=== PATIENT | female | born 1990 | race Caucasian/White ===

== ENCOUNTER 2022-10-29 09:30 | Outpatient (OUT) | payer OTHER, SELFPAY ==
--- NOTE | 2022-10-29 | XR_ITS ---
[address] [address] Patient Name: IRVING REEVES MRN: [id number] date: 1990 Sex: F Assigned Patient Location: [facility] Current Patient Location: [facility] Accession/Order Number: [id number] Exam Date: 10/29/2022 10:07 Report Date: 10/29/2022 11:56 At the request of: JOHNATHAN KANG Procedure: XR foot LT min 3V PROCEDURE: XR foot LT min 3V HISTORY: LEFT FOOT PAIN COMPARISON: XR foot left 09/11/2022 FINDINGS: BONES:Stable small osseous protrusion along lateral base of fifth metatarsal. No fracture, dislocation, bone lesion. No significant degenerative joint disease. Flattening of plantar arch. SOFT TISSUES:No visible soft tissue swelling. EFFUSION:None visible. OTHER: Negative. IMPRESSION: 1. No acute bone abnormality. 2. Stable pes planus and stable base of fifth metatarsal. Electronically authenticated by: JOHNATHAN MALDONADO Date: 10/29/2022 11:56
== END 2022-10-29 09:31 | disposition home or self-care (01) ==
LOC: RAD 09:30
PROVIDERS: Visit Provider Podiatrist Foot & Ankle Surgery
DX: M79.672 Pain in left foot (principal); M21.42 Flat foot [pes planus] (acquired), left foot
CPT/HCPCS: 73630

== ENCOUNTER 2023-11-27 12:01 | Outpatient (OUT) | payer BC, SELFPAY ==
[2023-11-27 12:33] LABS: Basophils Percent Auto 0.3 % (0.2-2.0); Eosinophils Absolute Auto 0.2 10^3/uL (0.0-0.7); Eosinophils Percent Auto 1.9 % (0.9-7.0); Hematocrit 41.7 % (36.0-48.0); Hemoglobin 14.1 g/dL (12.0-16.0); Immature Granulocytes Abs Auto 0.03 10^3/uL (0.00-0.03); Immature Granulocytes Pct Auto 0.3 % (0.0-0.5); Mean Corpuscular HGB Conc 33.8 g/dL (29.9-35.2); Mean Corpuscular Hemoglobin 28.3 pg (26.7-34.0); Mean Corpuscular Volume 83.7 fL (81.0-99.0); Mean Platelet Volume 8.5 fL (9.5-13.5); Monocytes Absolute Auto 0.4 10^3/uL (0.3-0.8); Monocytes Percent Auto 4.8 % (1.7-12.0); Neutrophils Absolute Auto 6.4 10^3/uL (1.4-6.5); Neutrophils Percent Auto 70.7 % (43.0-75.0); Platelet Count 323 10^3/uL (150-450); Red Blood Count 4.98 10^6/uL (4.20-5.40); Red Cell Distribution Width 13.2 % (11.0-15.0); White Blood Count 9.1 10^3/uL (4.0-11.0)
[2023-11-27 13:20] LABS: Estimated Average Glucose 97 mg/dL
[2023-11-27 13:21] LABS: Bilirubin Urine NEGATIVE (NEGATIVE); Blood Urine LARGE (NEGATIVE); Clarity Urine SL CLOUDY (CLEAR); Color Urine LT. YELLOW (YELLOW); Glucose Urine UA NEGATIVE (NEGATIVE); Ketones Urine NEGATIVE (NEGATIVE); Leukocyte Esterase Urine LARGE (NEGATIVE); Nitrite Urine NEGATIVE (NEGATIVE); Protein Urine NEGATIVE (NEG/TRACE); Specific Gravity Urine 1.015 (1.005-1.025); Urobilinogen Urine 0.2 EU/dL (0.2-1.0); pH Urine 7.5 (5.0-9.0)
[2023-11-27 13:31] LABS: Bacteria Urine LARGE #/HPF (NONE SEEN)
[2023-11-27 13:32] LABS: Cast Seen? NONE SEEN #/LPF (NONE SEEN); Crystals Seen? None Seen #/HPF (None Seen); Mucus Urine TRACE (NONE SEEN); Squamous Epithelial Cell Urine MANY #/LPF (NONE/RARE); Transitional Epi Cells Urine RARE #/LPF (NONE SEEN)
[2023-11-27 13:58] LABS: Total Protein Urine Random 15.9 mg/dL (<=11.9)
[2023-11-27 14:13] LABS: Alanine Aminotransferase 21 U/L (14-59); Albumin Globulin Ratio 1.1; Albumin Level 3.7 g/dL (3.4-5.0); Alkaline Phosphatase 100 U/L (46-116); Anion Gap 10.8; Aspartate Amino Transferase 16 U/L (15-37); BUN Creatinine Ratio 15.9; Bilirubin Total 0.4 mg/dL (0.2-1.0); Calcium 9.3 mg/dL (8.5-10.1); Carbon Dioxide 28.8 mmol/L (21.0-32.0); Chloride 104 mmol/L (98-107); Estimated GFR (African America >60 (>=60); Estimated GFR (Non-African Ame >60 (>=60); Free T3 2.29 pg/mL (2.18-3.98); Globulin 3.5 g/dL; Glucose 86 mg/dL (74-106); Potassium 3.6 mmol/L (3.5-5.1); Sodium 140 mmol/L (136-145); Thyroid Stimulating Hormone 1.561 uIU/mL (0.358-3.740); Total Protein 7.2 g/dL (6.4-8.2)
== END 2023-11-27 12:02 | disposition home or self-care (01) ==
LOC: LAB 12:03
PROVIDERS: PCP Family Medicine; Visit Provider Family Medicine
DX: R80.9 Proteinuria, unspecified (principal)
CPT/HCPCS: 36415; 80053; 81001; 83036; 84156; 84436; 84443; 84481; 85025

== ENCOUNTER 2024-03-05 07:50 | Outpatient (OUT) | payer BC, SELFPAY ==
--- OUTSIDE RECORDS SUMMARY | 2024-03-05 07:55 | XMS_ITS | CCD ---
Author Organization [facility] CliniSyal Care Team Providers Care Technical Sales Specialist Name Role Phone Maryellen Cintron Unavailable STEVEN Kelley, DR KOTHARI Primary Care Unavailable ZIEBER, DR JOHNATHAN Harding Consulting Unavailable TATI TOVAR Admitting Unavailable TATI TOVAR Attending Unavailable TATI TOVAR Consulting Unavailable KARENY ., DR KOTHARI Primary Care Unavailable TATI TOVAR Attending Unavailable TATI TOVAR Admitting Unavailable SULEMA, DR ABIMBOLA Adame Consulting Unavailable TATI TOVAR Consulting Unavailable JOHNATHAN KANG Admitting Unavailable HOY ., DR KOTHARI Primary Care Unavailable ALLIEBER, DR JOHNATHAN Harding Consulting Unavailable HIGHLANDERJOHNATHAN Attending Unavailable HIGHLANDERJOHNATHAN Consulting Unavailable HOY ., DR KOTHARI Admitting Unavailable HOY ., DR KOTHARI Consulting Unavailable HOY ., DR KOTHARI Attending Unavailable AICHHOLZ, EARRINGS FABRICATOR GALDINO Primary Care Unavailable WEST, DR ABIMBOLA Adame Consulting Unavailable ABIMBOLA GOEL Consulting Unavailable HOY ., DR KOTHARI Admitting Unavailable HOY ., DR KOTHARI Primary Care Unavailable HOY ., DR KOTHARI Consulting Unavailable HOY ., DR KOTHARI Attending Unavailable HOY ., DR KOTHARI Primary Care Unavailable HOY ., DR KOTHARI Attending Unavailable HOY ., DR KOTHARI Admitting Unavailable WEST, DR ABIMBOLA Adame Consulting Unavailable AICHHOLZ, EARRINGS FABRICATOR GALDINO Primary Care Unavailable GUY, TATI Admitting Unavailable GUYTATI Attending Unavailable GUY, TATI Consulting Unavailable AICHHOLZ, EARRINGS FABRICATOR GALDINO Primary Care Unavailable AICHHOLZ, EARRINGS FABRICATOR GALDINO Consulting Unavailable AICHHOLZ, EARRINGS FABRICATOR GALDINO Attending Unavailable AICHHOLZ, EARRINGS FABRICATOR GALDINO Admitting Unavailable AICHHOLZ, EARRINGS FABRICATOR GALDINO Primary Care Unavailable AICHHOLZ, EARRINGS FABRICATOR GALDINO Consulting Unavailable AICHHOLZ, EARRINGS FABRICATOR GALDINO Attending Unavailable AICHHOLZ, EARRINGS FABRICATOR GALDINO Admitting Unavailable HOY ., DR KOTHARI Primary Care Unavailable TATI TOVAR Attending Unavailable GUYTATI Admitting Unavailable HOY ., DR KOTHARI Admitting Unavailable HOY ., DR KOTHARI Primary Care Unavailable HOY ., DR KOTHARI Consulting Unavailable HOY ., DR KOTHARI Attending Unavailable ZIEBER, DR JOHNATHAN Harding Consulting Unavailable PEARL, JOHNATHAN Joiner Admitting Unavailable HOY ., DR KOTHARI Primary Care Unavailable ALLIEBANTONIO, DR JOHNATHAN Harding Consulting Unavailable HIGHLANDER, JOHNATHAN Joiner Attending Unavailable HIGHLANDER, JOHNATHAN Joiner Consulting Unavailable DIANA ., BOUBACAR OLIVAREZ Consulting Unavailable MORGOS, FLORIDALMA Consulting Unavailable SHARP, ZAHIDA Consulting Unavailable HOY ., DR KOTHARI Primary Care Unavailable ANA, DR AMISH Harding Admitting Unavailable ANA, DR AMISH Harding Consulting Unavailable ANA, DR AMISH Harding Attending Unavailable LOLA MILLER Consulting Unavailable HOY ., DR KOTHARI Primary Care Unavailable GUY, TATI Admitting Unavailable GUY, TATI Attending Unavailable PEARL, JOHNATHAN Joiner Admitting Unavailable JOHNATHAN KANG Consulting Unavailable HOY ., DR KOTHARI Primary Care Unavailable PEARL, JOHNATHAN Joiner Attending Unavailable CHUNGDHAVAL ALVAREZ Consulting Unavailable HOY ., DR KOTHARI Primary Care Unavailable MARKER ., DR BARRETT Attending Unavailable MARKER ., DR BARRTET Admitting Unavailable MARKER ., DR BARRETT Consulting Unavailable PEARL, JOHNATHAN Joiner Admitting Unavailable HOY ., DR KOTHARI Primary Care Unavailable JOHNATHAN KANG Attending Unavailable Allergies Allergy Classification Reported Allergen(s) Allergy Type Date of Onset Reaction(s) Facility (1 source) [place] [facility] allergy Unknown [facility] [employer] Other (1 source) Sulfamethoxazole / Trimethoprim Drug Allergy Unknown [facility] [employer] Other (1 source) tree nut, unspecified Drug allergy Unknown [facility] [employer] Other (2 sources) strawberry allergenic extract Drug Allergy [facility] (2 sources) Sulfamethoxazole / Trimethoprim Drug Allergy [address] [facility] (2 sources) tree nut, unspecified Drug allergy (disorder) [facility] Medications Current Medications Medication Drug Class(es) Dates Sig (Normalized) Sig (Original) ARIPiprazole (1 source) Atypical Antipsychotic ARIPiprazole Active cephalexin 500 mg oral capsule (1 source) Cephalosporin Antibacterial Start: 08-21-2021 take 1 capsule by mouth every eight hours Cephalexin 500 MG 1 capsule Orally tid for 10 day(s) Jul, Active Cetirizine (1 source) Histamine-1 Receptor Antagonist ZyrTEC Allergy Active Loratadine (1 source) Claritin Active Omeprazole (1 source) Proton Pump Inhibitor Omeprazole Active Problems Active Problems Problem Classification Problem Date Documented Da te Episodic/Chronic Other non-traumatic joint disorders (1 source) Osteophyte, vertebrae; Translations: [OSTEOPHYTE VERTEBRAE] Onset: 12-09-2021 Chronic Other nutritional; endocrine; and metabolic disorders (1 source) Obesity, unspecified; Translations: [OBESITY UNSPECIFIED] Onset: 01-22-2022 Chronic Other nutritional; endocrine; and metabolic disorders (1 source) Body mass index (BMI) 70 or greater, adult; Translations: [BODY MASS INDEX 70/GT ADULT] Onset: 01-22-2022 Chronic Other nutritional; endocrine; and metabolic disorders (1 source) Morbid (severe) obesity due to excess calories; Translations: [MORBID SEVERE OBES D/T EXCESS MARIIA] Onset: 01-23-2022 Chronic Other nutritional; endocrine; and metabolic disorders (1 source) Body mass index (BMI) 60.0-69.9, adult; Translations: [BODY MASS INDEX BMI 60.0-69.9 ADULT] Onset: 01-23-2022 Chronic Rehabilitation care; fitting of prostheses; and adjustment of devices (4 sources) Encounter for fitting and adjustment of other specified devices; Translations: [ENC FITTING AND ADJUST OTH SPEC DEVICES] Onset: 01-20-2022 Chronic Unclassified (3 sources) CONTACT W/AND (SUSP) EXPOS COVID-19; Translations: [CONTACT W/AND (SUSP) EXPOS COVID-19] Onset: 01-11-2022 Unclassified (1 source) COUGH, UNSPECIFIED; Translations: [COUGH, UNSPECIFIED] Onset: 04-07-2022 Unclassified (1 source) PERSONAL HISTORY OF COVID-19; Translations: [PERSONAL HISTORY OF COVID-19] Onset: 01-23-2022 Viral infection (1 source) COVID-19; Translations: [COVID-19] Onset: 04-07-2022 Past or Other Problems Problem Classification Problem Date Documented Da te Episodic/Chronic Abdominal pain (3 sources) Unspecified abdominal pain; Translations: [UNSPECIFIED ABDOMINAL PAIN] Onset: 12-05-2021 Episodic Acquired foot deformities (1 source) Flat foot [pes planus] (acquired), left foot; Translations: [FLAT FOOT PES PLANUS ACQ LT FOOT] Onset: 02-06-2022 Episodic Fracture of lower limb (10 sources) Displaced fracture of fifth metatarsal bone, left foot, subsequent encounter for fracture with nonunion; Translations: [Displaced fracture of fifth metatarsal bone, unspecified foot, sequela] Onset: 10-02-2021 Episodic Fracture of upper limb (1 source) Displaced fracture of base of other metacarpal bone, sequela; Translations: [[facility]] Onset: 11-13-2021 Episodic Open wounds of extremities (1 source) Puncture wound without foreign body of unspecified finger without damage to nail, initial encounter Onset: 08-21-2021 Resolved: 08-21-2021 Episodic Other aftercare (1 source) Other long term care phlebotomist (current) drug therapy; Translations: [OT HALF-WAY CURRENT DRUG THERAPY] Onset: 01-22-2022 Episodic Other connective tissue disease (4 sources) Pain in left foot; Translations: [PAIN IN LEFT FOOT] Onset: 04-01-2022 Episodic Other connective tissue disease (5 sources) Peroneal tendinitis, left leg; Translations: [PERONEAL TENDINITIS LEFT LEG] Onset: 11-11-2021 Episodic Other connective tissue disease (1 source) Pain in right foot; Translations: [PAIN IN RIGHT FOOT] Onset: 01-23-2022 Episodic Other connective tissue disease (1 source) Ganglion, left ankle and foot; Translations: [GANGLION LEFT ANKLE AND FOOT] Onset: 01-23-2022 Episodic Other connective tissue disease (4 sources) Impingement syndrome of unspecified shoulder; Translations: [IMPINGEMENT SYNDROME UNS SHOULDER] Onset: 09-25-2021 Episodic Other injuries and conditions due to external causes (4 sources) Other injury of muscle, fascia and tendon of lower back, sequela; Translations: [OTH INJ MUSC FASC TEND LW BACK SEQ] Onset: 12-13-2021 Episodic Other upper respiratory disease (1 source) Nasal congestion; Translations: [NASAL CONGESTION] Onset: 04-07-2022 Episodic Spondylosis; intervertebral disc disorders; other back problems (1 source) Dorsalgia, unspecified; Translations: [DORSALGIA UNSPECIFIED] Onset: 12-09-2021 Episodic Unclassified (1 source) CONTACT W/AND (SUSP) EXPOS COVID-19; Translations: [CONTACT W/AND (SUSP) EXPOS COVID-19] Onset: 04-03-2022 Results Test Name Value Interpretation Reference Range Facility Covid-19 PCR (CVDTB)on SARS-CoV-2 (COVID-19) RNA COLBY+probe Ql (Unsp spec) Detected Critically abnormal NOT DETECTED [facility] Comment on above: Result Comment: This test is not yet approved or cleared by the [place] FDA. When there are no FDA-approved or cleared tests available, and other criteria are met, FDA can make tests available under an emergency access mechanism called an Emergency Use Authorization (EUA). The EUA for this test is supported by the Facilities Painter of Health and Human Service's (HHS's) declaration that circumstances exist to justify the emergency use of in vitro diagnostics for the detection and/or diagnosis of the virus that causes COVID-19. This EUA will remain in effect (meaning this test can be used) for the duration of the COVID-19 declaration justifying emergency of IVDs, unless it is terminated or revoked by FDA (after which the test may no longer be used). Performed By: #### C VDTBH #### [facility] [address] [place] [address] Dr. Pat Sarabia INFLUENZA A AND B AGon 04-03 [facility] SEE BELOW Normal [facility] Comment on above: Result Comment: Nega tive for Flu A protein angiten. Infection due to Flu A cannot be ruled out. Flu A angiten in the sample may be below the detection limit of the test. Performed By: #### I NFLUAB #### [facility] [address] [place] [address] Dr. [facility] Normal [facility] Comment on above: Result Comment: Nega tive for Flu B protein antigen. Infection due to Flu B cannot be ruled out. Flu B antigen in the sample may be below the detection limit of the test. Performed By: #### I NFLUAB #### [facility] [address] [address] [address] Pat Sarabia INFLUENZA A AG Negative Normal NEGATIVE SEE COMMENT [facility] Comment on above: Performed By: #### I NFLUAB #### [facility] [address] [address] [address] Pat Sarabia INFLUENZA B AG Negative Normal NEGATIVE SEE COMMENT [facility] Comment on above: Performed By: #### I NFLUAB #### [facility] [address] [address] [address] Pat Sarabia INTERNAL CONTROLS Within Normal Limits Normal Wi thin Normal Limits [facility] Comment on above: Performed By: #### I NFLUAB #### [facility] [address] [place] [address] Dr. Pat Sarabia POINT OF CARE GLUCOSEon 12-26 Glucose [Mass/Vol] 101 mg/dL Normal 74-106 [facility] Comment on above: Performed By: #### A 1C #### [facility] [address] [address] [address] Pat Sarabia Glucose [Mass/Vol] 89 mg/dL Normal 74-106 [facility] Comment on above: Performed By: #### P OCGLUC #### [facility] [address] [place] [address] Dr. Pat Sarabia PREG HCG QUALon 01-13-2022 , QUAL Negative Normal NEGATIVE [facility] Comment on above: Performed By: #### P REG #### [facility] [address] [place] [address] Dr. Pat Sarabia Covid-19 PCR (CVDTBH)on 12-26 SARS-CoV-2 (COVID-19) RNA COLBY+probe Ql (Unsp spec) Not detected Normal NOT DETECTED [facility] Comment on above: Result Comment: This test is not yet approved or cleared by the [place] FDA. When there are no FDA-approved or cleared tests available, and other criteria are met, FDA can make tests available under an emergency access mechanism called an Emergency Use Authorization (EUA). The EUA for this test is supported by the [place] of Health and Human Service's (HHS's) declaration that circumstances exist to justify the emergency use of in vitro diagnostics for the detection and/or diagnosis of the virus that causes COVID-19. This EUA will remain in effect (meaning this test can be used) for the duration of the COVID-19 declaration justifying emergency of IVDs, unless it is terminated or revoked by FDA (after which the test may no longer be used). When diagnostic testing is negative, the possibility of a false negative should be considered in the context of a patient's recent exposures and the presence of clinical signs and symptoms consistent with SARS-CoV-2. Performed By: #### C [facility] #### [facility] [address] [place] [address] Dr. Pat Sarabia XR LSPINE MIN 4 VIEWSon 11-26 XR LSPINE MIN 4 VIEWS EXAMINATION: XR LSPINE MIN 4 VIEWS HISTORY: Muscle and tendon injury ; acute low back pain; no known injury of COMPARISON: No relevant comparison available. FINDINGS: BONES: Mild degenerative endplate changes T11-T12, T12-L1, L2-L3. No fracture spondylolisthesis. DISC SPACES: Mild narrowing L5-S1. PARASPINOUS: Negative. No paraspinous abnormality is seen. OTHER: Negative. IMPRESSION: 1. Multilevel mild degenerative changes. 2. No appreciable acute abnormality. Electronically authenticated by: JOHNATHAN MALDONADO Date: 2021 07:[address] [facility] CT ABD/PELVIS WO CONon 12-06 CT ABD/PELVIS WO CON EXAM: CT abdomen an d Pelvis without contrast dated 12/05/2021 10:01 PM EDT HISTORY: 30 years old Female with left lower quadrant pain. Pain exaggerated with movement. COMPARISON STUDY: None available at time of dictation. TECHNIQUE: Multidetector spiral CT of the abdomen and pelvis was performed from lung bases to pubic symphysis. Imaging was performed without IV contrast. Axial, coronal and sagittal multiplanar reformats were obtained from the axial data set by the technologist. Dose reduction techniques were achieved by using automated exposure control and/or adjustment of mA and/or kV according to patient size and/or use of iterative reconstruction technique. FINDINGS: Evaluation of solid organs is limited due to lack of intravenous contrast use. It should be noted that due to body habitus and technical factors, the soft tissues are not entirely included in the [id number], and there is significant artifact obscuring evaluation on the reconstructed sagittal images. Within this limitation the following are noted. Lung Bases: No acute or significant lung base finding. Normal heart size. No pleural or pericardial effusion. Liver: The liver is normal in size. No focal lesions. Gallbladder and Biliary Tree: The gallbladder is decompressed however very small stones may be present in the lumen of the gallbladder without CT features of cholecystitis. Consider targeted ultrasound if clinically indicated for better characterization. Spleen: Unremarkable Pancreas: The pancreas is grossly normal in appearance. No significant surrounding fluid or edema is appreciated within the limitations of noncontrast CT. Very subtle interstitial edema distally on images 40 series 3 through 42 series 3 and at the proximal pancreas on image 46 through 48 is not excluded, however this may be due to volume averaging. Consider correlation with serum lipase for very mild or early pancreatitis. Adrenal Glands: Unremarkable Kidneys: Kidneys are grossly normal without obstructing calculi or hydronephrosis. 2 mm calculus in the left kidney on image 48 series 3. The distal ureters are somewhat obscured however no ureteric stones are seen. Bladder: Grossly unremarkable for degree of distention. Bowel: The stomach is grossly normal in appearance. Small bowel and colon are normal in caliber and distribution. The appendix is normal in caliber with no findings of acute appendicitis. Scattered diverticulosis with no evidence to suggest diverticulitis. Moderate stool in the colon is noted. Slight areas of fluid-filled enteric bowel are noted in the abdomen, and subcentimeter lymph nodes in the left mesentery are appreciated with subtle adjacent haziness. No pathologic adenopathy is seen. Findings are well seen on images 53 through 102 of series 3 and on the coronal reconstructed images 38 through 51. Mild infectious or inflammatory enteritis is a consideration. Lymphadenopathy: No pathologic mesenteric, retroperitoneal or periportal lymphadenopathy. Vasculature: The visualized abdominal aorta is normal in size and caliber. Evaluation of abdominal and pelvic vessels is limited due to lack of intravenous contrast. Pelvic Organs: No large volume of pelvic free fluid is seen. Probable functional change within the bilateral adnexa however these findings are poorly evaluated on CT. Consider targeted ultrasound for better characterization. Musculoskeletal: No aggressive focal bony lesions, acute fractures or dislocation. At T11-T12, there is significant posterior disc osteophyte formation with calcification of the annulus suggested, left greater than right which narrows the central canal and significantly abuts the lateral recess and neural foramina on the left. No significant right neural foraminal narrowing at this level. Slight posterior disc bulge at L3-L4 and L4-L5 suggested but poorly evaluated due to technique. These findings can be better evaluated with MRI. IMPRESSION: No acute abdominal or pelvic findings. Moderate stool in the colon compatible with constipation and mild infectious or inflammatory enteritis suggested as above. Posterior disc osteophyte complex formation in the lower thoracic spine which narrows the central canal and significantly encroaches upon the left lateral recess and neural foramina is noted as above. Consider correlation with MRI if indicated for better characterization. Nonacute findings as above Electronically authenticated by: LOLA MILLER Date: 2021-12-05 22:[address] [facility] ER URINE PROFILEon 2 Bilirubin Ql (U) Negative Normal NEGATIVE [facility] Comment on above: Performed By: #### E RUR #### [facility] [address] [place] [address] Dr. Pat Sarabia Clarity (U) CLEAR Normal CLEAR [facility] Comment on above: Performed By: #### E RUR #### [facility] [address] [place] [address] Dr. Pat Sarabia Color (U) LT. YELLOW Normal YELLOW [facility] Comment on above: Performed By: #### E RUR #### [facility] [address] [place] [address] Dr. Pat Sarabia ERUAHD A micrscopic examination will be performed if indicated. Normal [facility] Comment on above: Performed By: #### E RUR #### [facility] [address] [place] [address] Dr. Pat Sarabia Glucose Ql (U) Negative Normal NEGATIVE [facility] Comment on above: Performed By: #### E RUR #### [facility] [address] [place] [address] Dr. Pat Sarabia Hemoglobin Ql (U) Negative Normal NEGATIVE [facility] Comment on above: Performed By: #### E RUR #### [facility] [address] [place] [address] Dr. Pat Sarabia Ketones Ql (U) Negative Normal NEGATIVE [facility] Comment on above: Performed By: #### E RUR #### [facility] [address] [place] [address] Dr. Pat Sarabia LEUKOCYTES Negative Normal NEGATIVE [facility] Comment on above: Performed By: #### E RUR #### [facility] [address] [place] [address] Dr. Pat Sarabia Nitrite Ql (U) Negative Normal NEGATIVE [facility] Comment on above: Performed By: #### E RUR #### [facility] [address] [place] [address] Dr. Pat Sarabia pH (U) 6.0 [pH] Normal 5-9 [facility] Comment on above: Performed By: #### E RUR #### [facility] [address] [place] [address] Dr. Pat Sarabia SPEC GRAVITY 1.025 Normal 1.005-<=1.025 [facility] Comment on above: Performed By: #### E RUR #### [facility] [address] [place] [address] Dr. Pat Sarabia UA PROTEIN Negative Normal NEGATIVE/ TRACE [facility] Comment on above: Performed By: #### E RUR #### [facility] [address] [place] [address] Dr. Pat Sarabia UR MICRO IND NOT INDICATED Normal [facility] Comment on above: Performed By: #### E RUR #### [facility] [address] [place] [address] Dr. Pat Sarabia Urobilinogen Qn (U) 0.2 {Hattie'U}/dL Normal 0.2 - 1. 0 [facility] Comment on above: Performed By: #### E RUR #### [facility] [address] [place] [address] Dr. Pat Sarabia MRI FOOT LT WO CONon 022 MRI FOOT LT WO CON Begin Addendum #1 EXAM: MRI FOOT LT WO CON HISTORY: Left foot pain COMPARISON: None. TECHNIQUE: Multiplanar, multi sequential MRI sequences were performed. FINDINGS: This study is degraded secondary to sequence image angulation. There is no gross visualized fracture, dislocation, subluxation or osseous lesion. No joint effusion. Questionable mild soft tissue edema with no loculated collection, mass, cyst, hematoma or calcification. No muscle edema, hematoma, atrophy or fatty infiltration. The visualized tendons exhibit no thickening, tear, edema or tenosynovial collections. IMPRESSION: No visualized abnormality Original Report EXAM: MRI FOOT LT WO CON HISTORY: Stress fracture of left foot COMPARISON: None. TECHNIQUE: FINDINGS: IMPRESSION: Normal [facility] XR FOREIGN BODY EYEon 2021 XR FOREIGN BODY EYE EXAMINATION: XR FOREIGN BODY EYE HISTORY: Foreign body in eye COMPARISON: No relevant comparison available. FINDINGS: ORBITS: Linear hyperdensity projects over the inferior orbits and nose, repeat image demonstrates this to be metal within the patient's mask OTHER: Negative. IMPRESSION: No metallic foreign body in the orbits Electronically authenticated by: ABIMBOLA LEONE Date: 2021-09-25 09:[address] [facility] UA RANDOM W/MICROSCOPICon BACTERIA SMALL Abnormal NONE SEEN [facility] Comment on above: Performed By: #### U AMIC #### [facility] [address] [place] [address] Dr. Pat Sarabia Bilirubin Ql (U) Negative Normal NEGATIVE [facility] Comment on above: Performed By: #### U AMIC #### [facility] [address] [place] [address] Dr. Pat Sarabia CAST NONE SEEN Normal NONE SEEN [facility] Comment on above: Performed By: #### U AMIC #### [facility] [address] [place] [address] Dr. Pat Sarabia Clarity (U) CLEAR Normal CLEAR [facility] Comment on above: Performed By: #### U AMIC #### [facility] [address] [place] [address] Dr. Pat Sarabia Color (U) YELLOW Normal YELLOW [facility] Comment on above: Performed By: #### U AMIC #### [facility] [address] [address] [address] Pat Sarabia Crystals LM Nom (Urine sed) NONE SEEN Normal NONE SEEN [facility] Comment on above: Performed By: #### U AMIC #### [facility] [address] [address] [address] Pat Sarabia Epithelial cells LM Ql (Urine sed) MANY Abnormal NONE SEEN /RARE [facility] Comment on above: Performed By: #### U AMIC #### [facility] [address] [place] [address] Dr. Pat Sarabia Glucose Ql (U) Negative Normal NEGATIVE [facility] Comment on above: Performed By: #### U AMIC #### [facility] [address] [address] [address] Pat Sarabia Hemoglobin Ql (U) Negative Normal NEGATIVE [facility] Comment on above: Performed By: #### U AMIC #### [facility] [address] [address] [address] Pat Sarabia Ketones Ql (U) Negative Normal NEGATIVE [facility] Comment on above: Performed By: #### U AMIC #### [facility] [address] [address] [address] Pat Sarabia LEUKOCYTES Negative Normal NEGATIVE [facility] Comment on above: Performed By: #### U AMIC #### [facility] [address] [address] [address] Pat Sarabia MUCOUS NONE SEEN Normal NONE SEEN [facility] Comment on above: Performed By: #### U AMIC #### [facility] [address] [address] [address] Pat Sarabia Nitrite Ql (U) Negative Normal NEGATIVE The [facility] Comment on above: Performed By: #### U AMIC #### [facility] [address] [place] [address] Dr. Pat Sarabia pH (U) 5.5 [pH] Normal 5-[address] [facility] Comment on above: Performed By: #### U AMIC #### [facility] [address] [place] [address] Dr. Pat Sarabia RBC NONE SEEN Abnormal 0-[address] [facility] Comment on above: Performed By: #### U AMIC #### [facility] [address] [place] [address] Dr. Pat Sarabia SPEC GRAVITY >=1.030 Abnormal 1.005-<=1.025 [facility] Comment on above: Performed By: #### U AMIC #### [facility] [address] [place] [address] Dr. Pat Sarabia UA PROTEIN Negative Normal NEGATIVE/ TRACE [facility] Comment on above: Performed By: #### U AMIC #### [facility] [address] [place] [address] Dr. Pat Sarabia Urobilinogen Qn (U) 0.2 {Hattie'U}/dL Normal 0.2 - 1. [address] [facility] Comment on above: Performed By: #### U AMIC #### [facility] [address] [place] [address] Dr. Pat Sarabia WBC 2-5 Abnormal NONE SEEN [facility] Comment on above: Performed By: #### U AMIC #### [facility] [address] [place] [address] Dr. Pat Sarabia CBC AUTO DIFFon 09-10-2021 BASO # 0.0 103/ul Normal 0.0-0.1 [facility] Comment on above: Performed By: #### C BC #### [facility] [address] [place] [address] Dr. Pat Sarabia Basophils/100 WBC (Bld) 0.4 % Normal 0.2-2.[address] [facility] Comment on above: Performed By: #### C BC #### [facility] [address] [place] [address] Dr. Pat Sarabia EO # 0.2 103/ul Normal 0.0-0.[address] [facility] Comment on above: Performed By: #### C BC #### [facility] [address] [place] [address] Dr. Pat Sarabia Eosinophils/100 WBC (Bld) 2.3 % Normal 0.9-7.0 [facility] Comment on above: Performed By: #### C BC #### [facility] [address] [place] [address] Dr. Pat Sarabia Erythrocyte distribution width (RBC) [Ratio] 13.8 % Normal 11.0-15.0 [facility] Comment on above: Performed By: #### C BC #### [facility] [address] [place] [address] Dr. Pat Sarabia Hematocrit (Bld) [Volume fraction] 41.4 % Normal 36.0-48.0 [facility] Comment on above: Performed By: #### C BC #### [facility] [address] [place] [address] Dr. Pat Sarabia Hemoglobin (Bld) [Mass/Vol] 13.1 g/dL Normal 12.0-16.0 [facility] Comment on above: Performed By: #### C BC #### [facility] [address] [place] [address] Dr. Pat Sarabia IG # 0.02 10e3/ul Normal 0.00-0.03 [facility] Comment on above: Performed By: #### C BC #### [facility] [address] [place] [address] Dr. Pat Sarabia IG % 0.2 % Normal 0.0-0.5 [facility] Comment on above: Performed By: #### C BC #### [facility] [address] [place] [address] Dr. Pat Sarabia LYMPH # 2.4 103/ul Normal 1.2-3.8 [facility] Comment on above: Performed By: #### C BC #### [facility] [address] [place] [address] Dr. Pat Sarabia Lymphocytes/100 WBC (Bld) 29.9 % Normal 20.5-60.0 [facility] Comment on above: Performed By: #### C BC #### [facility] [address] [place] [address] Dr. Pat Sarabia MANUAL DIFF REQ NO Normal [facility] Comment on above: Performed By: #### C BC #### [facility] [address] [address] [address] Pat Sarabia MCH (RBC) [Entitic mass] 27.6 pg Normal 26.7-34.0 [facility] Comment on above: Performed By: #### C BC #### [facility] [address] [place] [address] Dr. Pat Sarabia MCHC (RBC) [Mass/Vol] 31.6 g/dL Normal 29.9-35.[address] [facility] Comment on above: Performed By: #### C BC #### [facility] [address] [place] [address] Dr. Pat Sarabia MCV (RBC) [Entitic vol] 87.3 fL Normal 81.0-99.0 [facility] Comment on above: Performed By: #### C BC #### [facility] [address] [place] [address] Dr. Pat Sarabia MONO # 0.5 103/ul Normal 0.3-0.[address] [facility] Comment on above: Performed By: #### C BC #### [facility] [address] [place] [address] Dr. Pat Sarabia Monocytes/100 WBC (Bld) 5.9 % Normal 1.7-12.0 [facility] Comment on above: Performed By: #### C BC #### [facility] [address] [place] [address] Dr. Pat Sarabia NEUT # 5.0 103/ul Normal 1.4-6.[address] [facility] Comment on above: Performed By: #### C BC #### [facility] [address] [place] [address] Dr. Pat Sarabia Neutrophils/100 WBC (Bld) 61.3 % Normal 43.0-75.[address] [facility] Comment on above: Performed By: #### C BC #### [facility] [address] [place] [address] Dr. Pat Sarabia Platelet mean volume (Bld) [Entitic vol] 9.3 fL Critically low 9.5-13.[address] [facility] Comment on above: Performed By: #### C BC #### [facility] [address] [address] [address] Pat Sarabia PLT 336 103/ul Normal 150-450 [facility] Comment on above: Performed By: #### C BC #### [facility] [address] [address] [address] Pat Sarabia RBC 4.74 106/ul Normal 4.20-5.40 [facility] Comment on above: Performed By: #### C BC #### [facility] [address] [address] [address] Pat Sarabia WBC 8.1 103/ul Normal 4.0-11.0 [facility] Comment on above: Performed By: #### C BC #### [facility] [address] [address] [address] Pat Sarabia FREE T4on 09-10-2021 Free T4 [Mass/Vol] 1.29 ng/dL Normal 0.76-1.46 [facility] Comment on above: Performed By: #### A 1C #### [facility] [address] [place] [address] Dr. Pat Sarabia GLYCOHEMOGLOBIN A1Con 2021 ADA RECOMMENDATION SEE BELOW Normal [facility] Comment on above: Result Comment: ADA RECOMMENDED LIMIT 4.0 - 6.0 ADA THERAPEUTIC TARGET < 7.0 ACTION SUGGESTED > 7.0 Performed By: #### A 1C #### [facility] [address] [address] [address] Pat Sarabia Glucose [Mass/Vol] 108 mg/dL Normal [facility] Comment on above: Performed By: #### A 1C #### [facility] [address] [address] [address] Pat Sarabia HbA1c (Bld) [Mass fraction] 5.4 % Normal 4.5-6.2 [facility] Comment on above: Performed By: #### A 1C #### [facility] [address] [address] [address] Pat Sarabia LIPID PROFILEon 09-10-2021 CHOL-HDL RATIO NORM SEE BELOW Normal [facility] Comment on above: Result Comment: 3.3 - 4.4 LOW RISK 4.4 - 7.1 AVERAGE RISK 7.1 - 11.0 MODERATE RISK >11.0 HIGH RISK Performed By: #### A 1C #### [facility] [address] [address] [address] Pat Sarabia Cholesterol [Mass/Vol] 151 mg/dL Normal <=200 [facility] Comment on above: Performed By: #### A 1C #### [facility] [address] [address] [address] Pat Sarabia Cholesterol in HDL [Mass/Vol] 41 mg/dL Normal 40-60 [facility] Comment on above: Performed By: #### A 1C #### [facility] [address] [address] [address] Pta Sarabia Cholesterol in LDL [Mass/Vol] 88.6 mg/dL Normal [facility] Comment on above: Performed By: #### A 1C #### [facility] [address] [address] [address] Pat Sarabia Cholesterol.total/Ch olesterol in HDL [Mass ratio] 3.7 {ratio} Normal [facility] Comment on above: Performed By: #### A 1C #### [facility] [address] [address] [address] Pat Sarabia HDL NORMAL > or = 60 mg/dl - LOW CARDIOVASCULAR RISK <40 mg/dl - HIGH CARDIOVASCULAR RISK Normal [facility] Comment on above: Performed By: #### A 1C #### [facility] [address] [address] [address] Pat Sarabia LDL CALC NORMAL SEE BELOW Normal [facility] Comment on above: Result Comment: <100 mg/dl OPTIMAL 100 - 129 mg/dl NEAR OR ABOVE OPTIMAL 130 - 159 mg/dl BORDERLINE HIGH 160 - 189 mg/dl HIGH >190 mg/dl VERY HIGH Performed By: #### A 1C #### [facility] [address] [address] [address] Pat Sarabia Triglyceride [Mass/Vol] 107 mg/dL Normal <=150 [facility] Comment on above: Performed By: #### A 1C #### [facility] [address] [address] [address] Pat Sarabia VLDL CALC 21.4 mg/dL Normal [facility] Comment on above: Performed By: #### A 1C #### [facility] [address] [address] [address] Pat Sarabia PROF 14(COMP METB)on 022 Albumin [Mass/Vol] 3.5 g/dL Normal 3.4-5.0 [facility] Comment on above: Performed By: #### A 1C #### [facility] [address] [address] [address] Pat Sarabia Albumin/Globulin [Mass ratio] 1.0 {ratio} Normal [facility] Comment on above: Performed By: #### A 1C #### [facility] [address] [place] [address] Dr. Pat Sarabia ALP [Catalytic activity/Vol] 86 U/L Normal 46-116 [facility] Comment on above: Performed By: #### A 1C #### [facility] [address] [address] [address] Pat Sarabia ALT [Catalytic activity/Vol] 23 U/L Normal 14-59 [facility] Comment on above: Performed By: #### A 1C #### [facility] [address] [place] [address] Dr. Pat Sarabia Anion gap [Moles/Vol] 10.8 mmol/L Normal [facility] Comment on above: Performed By: #### A 1C #### [facility] [address] [address] [address] Pat Sarabia AST [Catalytic activity/Vol] 16 U/L Normal 15-37 [facility] Comment on above: Performed By: #### A 1C #### [facility] [address] [place] [address] Dr. Pat Sarabia Bilirubin [Mass/Vol] 0.4 mg/dL Normal 0.2-1.0 [facility] Comment on above: Performed By: #### A 1C #### [facility] [address] [address] [address] Pat Sarabia Calcium [Mass/Vol] 9.1 mg/dL Normal 8.5-10.1 [facility] Comment on above: Performed By: #### A 1C #### [facility] [address] [address] [address] Pat Sarabia Chloride [Moles/Vol] 102 mmol/L Normal 98-[address] [facility] Comment on above: Performed By: #### A 1C #### [facility] [address] [place] [address] Dr. Pat Sarabia CO2 [Moles/Vol] 29.0 mmol/L Normal 21.0-32.0 [facility] Comment on above: Performed By: #### A 1C #### [facility] [address] [place] [address] Dr. Pat Sarabia Creatinine [Mass/Vol] 0.80 mg/dL Normal 0.55-1.[address] [facility] Comment on above: Performed By: #### A 1C #### [facility] [address] [place] [address] Dr. Pat Sarabia EGFR-AF NEPALESE >60 Normal >=60 [facility] Comment on above: Performed By: #### A 1C #### [facility] [address] [place] [address] Dr. Pat Sarabia EGFR-NON AF NEPALESE >60 Normal >=[address] [facility] Comment on above: Performed By: #### A 1C #### [facility] [address] [place] [address] Dr. Pat Sarabia Globulin (S) [Mass/Vol] 3.6 g/dL Normal [facility] Comment on above: Performed By: #### A 1C #### [facility] [address] [place] [address] Dr. Pat Sarabia Glucose [Mass/Vol] 86 mg/dL Normal 74-106 [facility] Comment on above: Performed By: #### A 1C #### [facility] [address] [place] [address] Dr. Pat Sarabia Potassium [Moles/Vol] 3.8 mmol/L Normal 3.5-5.1 [facility] Comment on above: Performed By: #### A 1C #### [facility] [address] [place] [address] Dr. Pat Sarabia Protein [Mass/Vol] 7.1 g/dL Normal 6.4-8.2 [facility] Comment on above: Performed By: #### A 1C #### [facility] [address] [place] [address] Dr. Pat Sarabia Sodium [Moles/Vol] 138 mmol/L Normal 136-145 [facility] Comment on above: Performed By: #### A 1C #### [facility] [address] [place] [address] Dr. Pat Sarabia Urea nitrogen [Mass/Vol] 11.0 mg/dL Normal 7.0-18.0 [facility] Comment on above: Performed By: #### A 1C #### [facility] [address] [place] [address] Dr. Pat Sarabia Urea nitrogen/Creatinine [Mass ratio] 13.8 mg/mg Normal [facility] Comment on above: Performed By: #### A 1C #### [facility] [address] [place] [address] Dr. Pat Sarabia TSHon 09-10-2021 TSH 1.857 uIU/mL Normal 0.358-3.740 [facility] Comment on above: Performed By: #### A 1C #### [facility] [address] [place] [address] Dr. Pat Sarabia TSH RANGE SEE BELOW Normal [facility] Comment on above: Result Comment: <0.3 4 UIU/ml HYPERTHYROID 0.34-5.60 UIU/ml EUTHYROID >5.60 UIU/ml HYPOTHYROID Performed By: #### A 1C #### [facility] [address] [place] [address] Dr. Pat Sarabia Vital Signs Date Time Vital Sign Value Performing Clinician Facility 08-21-2021 11:50-0400 Body height 167.64 cm Maryellen Cintron Other [facility] Other 08-21-2021 11:50-0400 Body mass index (BMI) [Ratio] 66.98 kg/m2 Maryellen Cintron Other [facility] Other 08-21-2021 11:50-0400 Body temperature 97.7 [degF] Maryellen Cintron Other [facility] Other 08-21-2021 11:50-0400 Body weight 188.24 kg Maryellen Cintron Other [facility] Other 08-21-2021 11:50-0400 Diastolic blood pressure 97 mm[Hg] Maryellen Cintron Other [facility] Other 08-21-2021 11:50-0400 Respiratory rate 20 /min Maryellen Cintron Other [facility] Other 08-21-2021 11:50-0400 SaO2% (BldA) [Mass fraction] 99 % Maryellen Cintron Other [facility] Other 08-21-2021 11:50-0400 Systolic blood pressure 144 mm[Hg] Maryellen Saida Other [facility] Other Encounters Encounter Date Encounter Type Care Provider Facility Start: 09-11-[address] SANIYA Reddy ty:[facility] Start: 06-04-[address] SANIYA Reddy ty:[facility] Start: 04-03-2022 End: 04-03-[address] SANIYA HARRIS . Facility:[facility] Start: 04-01-2022 End: 04-02-[address] SANIYA HARRIS . Facility:[facility] Start: 03-04-2022 End: 03-05-[address] SANIYA HARRIS . Facility:[facility] Start: 02-05-2022 End: 02-06-2022 ambulatory JOHNATHAN Joiner [facility] Facility:[facility] Start: 01-20-2022 End: 01-21-[address] SANIYA HARRIS . Facility:[facility] Start: 01-13-2022 End: 01-13-2022 ambulatory JOHNATHAN Joiner [facility] Facility:[facility] Start: 01-11-2022 Encounter for other preprocedural examination [facility] Marisel [facility] Start: 01-11-2022 Encounter for preprocedural laboratory examination [facility] Marisel [facility] Start: 01-09-2022 End: 01-10-2022 ambulatory [facility] Marisel [facility] Facility:[facility]1 Start: 01-07-2022 End: 01-08-2022 ambulatory [facility] Marisel [facility] Facility:[facility]1 Start: 01-07-2022 End: 01-08-2022 Encounter for preprocedural laboratory examination [facility] Marisel [facility] Facility:[facility]1 Start: 12-13-2021 End: [address] SANIYA HARRIS . Facility:[facility] Start: 12-05-2021 End: 12-06-[address] SANIYA HARRIS . Facility:[facility] Start: 11-11-2021 End: 11-26-[address] SANIYA HARRIS . Facility:[facility] Start: 10-03-2021 End: 10-04-[address] ABIMBOLA LEONE Facility:[facility] Start: 09-25-2021 End: 09-26-[address] SANIYA HARRIS . Facility:[facility] Start: 09-13-2021 Encounter for genera l adult medical examination without abnormal findings MIGUELANGEL TURPIN [facility] Start: 09-11-2021 End: 09-11-2021 ambulatory EARRINGS FABRICATOR GALDINO PAPI Facility:[facility]1 Start: 09-11-2021 End: 09-11-2021 Encounter for general adult medical examination without abnormal findings MIGUELANGEL TURPIN Facility:[facility]1 Start: 09-10-2021 End: 09-11-2021 ambulatory MIGUELANGEL AHMADI PAPI Facility:[facility]1 Start: 08-21-2021 End: 08-21-2021 ambulatory Maryellen Cintron Other [facility] Other Start: 08-21-2021 Office outpatient ne w 20 minutes Maryellen Cintron [facility] Immunizations Immunization Date Immunization Notes Care Provider Piyush abreu 08-21-2021 tetanus toxoid, reduced diphtheria toxoid, and acellular pertussis vaccine, adsorbed Maryellen Cintron Other [facility] Other Payers Date Payer Category Payer Unknown [id number] 2.16.84 [id number] 1990 Unknown [id number] 2.16.84 [id number] 1990 Unknown [id number] 2.16.84 [id number] 1990 Unknown [id number] 2..84 [id number] 1990 Unknown [id number] 2.16.84 [id number] 1990 Unknown [id number] 2.16.84 [id number] 1990 Unknown [id number] 2.16.84 [id number] 1990 Unknown [id number] 2.16.84 [id number] 1990 Unknown [id number] 2.16.84 [id number] 1990 Unknown [id number] .16.84 [id number] 1990 Unknown [id number] 2.16.84 [id number] 1990 Unknown [id number] 2.16.84 0.1.242069.3.579.2.593 1990 Unknown [id number] 2.16.84 [id number] 1990 Unknown [id number] 2.16.84 0.1.812234.3.579.2.593 1990 Unknown [id number] 2.16.84 [id number] 1990 Unknown [id number] 2.16.84 [id number] 1990 Unknown [id number] 2.16.84 [id number] 1959 Private Health Insurance [id number] 1959 Self-pay [id number] Social History Date Type Detail Facility Unknown if ever smoked [facility] Other Sex Assigned At Sex Assigned At Bir th [facility] Other Clinical Note 04-01-2022 Note Date & Type Note Facility 04-01-2022 Note PROCEDURE: XR FOOT L T MIN 3 VIEWS HISTORY: Pain in left foot COMPARISON: XR foot left 03/04/2022 FINDINGS: BONES:Mild degenerative changes the midfoot with flattening of plantar arch. No fracture, dislocation, bone lesion. SOFT TISSUES:Distal dorsal soft tissue swelling. EFFUSION:None visible. OTHER: Negative. IMPRESSION: 1. Stable mild degenerative changes and pes planus. 2. No acute bone abnormality. Electronically authenticated by: JOHNATHAN MALDONADO Date: 2022-04-01 14:[address] [facility] Clinical Note 03-05-2022 Note Date & Type Note Facility 03-05-2022 Note PROCEDURE: XR FOOT L T MIN 3 VIEWS COMPARISON: 02/05/2022 01/13/2022 HISTORY: Pain in left foot FINDINGS: BONES:No acute fracture or dislocation. Stable degenerative changes most significant at the talonavicular joint. SOFT TISSUES:Negative. No visible soft tissue swelling. EFFUSION:None visible. OTHER: Negative. IMPRESSION: Mild degenerative changes Electronically authenticated by: ABIMBOLA LEONE Date: 2022-03-05 08:[address] [facility] Clinical Note 02-05-2022 Note Date & Type Note Facility 02-05-2022 Note PROCEDURE: XR FOOT L T MIN 3 VIEWS HISTORY: Pain COMPARISON: XR foot left 01/13/2022 FINDINGS: BONES:No fracture, dislocation, or significant degenerative joint disease. Flattening of the plantar arch. SOFT TISSUES:Mild dorsal soft tissue swelling. Cast material has been removed. EFFUSION:None visible. OTHER: Negative. IMPRESSION: 1. No acute bone abnormality or significant degenerative joint disease. 2. Pes planus. 3. Stable surgical changes. Electronically authenticated by: JOHNATHAN MALDONADO Date: 2022-02-05 17:[address] [facility] Clinical Note 01-13-2022 Note Date & Type Note Facility 01-13-2022 Note PROCEDURE: XR FOOT L T MIN 3 VIEWS HISTORY: Pain COMPARISON: XR foot left 10/03/2021, 01/13/2022 intraoperative images FINDINGS: BONES:A prominent, separate ossification previously seen at the base of the fifth metatarsal has been removed. SOFT TISSUES:Images obtained to cast material which limits evaluation. Mild soft tissue swelling. EFFUSION:None visible. OTHER: Negative. IMPRESSION: 1. Stable base of fifth metatarsal changes compared to intraoperative images. Electronically authenticated by: JOHNATHAN MALDONADO Date: 2022-01-13 16:[address] [facility] Clinical Note 01-13-2022 Note Date & Type Note Facility 01-13-2022 Note PROCEDURE: XR FOOT L T 2V HISTORY: Pain COMPARISON: XR foot left 10/03/2021 FINDINGS: BONES:Intraoperative spot fluoroscopic images demonstrate removal of separate ossification at base of fifth metatarsal. SOFT TISSUES:Expected intraoperative findings. EFFUSION:None visible. OTHER: Negative. IMPRESSION: 1. Separate ossification removal adjacent base of fifth metatarsal. Electronically authenticated by: JOHNATHAN MALDONADO Date: 2022-01-13 16:[address] [facility] Clinical Note 10-03-2021 Note Date & Type Note Facility 10-03-2021 Note PROCEDURE: XR FOOT L T MIN 3 VIEWS COMPARISON: None. HISTORY: Pain in left foot FINDINGS: BONES:No acute fracture or dislocation. There is contour deformity of the navicular suggesting remote injury. Bone fragment identified along the lateral midfoot likely arising from the cuboid, remote injury. SOFT TISSUES:Negative. No visible soft tissue swelling. EFFUSION:None visible. OTHER: Negative. IMPRESSION: Degenerative changes, no acute fracture Electronically authenticated by: ABIMBOLA LEONE Date: 2021-10-03 10:07 [facility] Evaluation note 08-21-2021 Note Date & Type Note Facility 08-21-2021 Evaluation note Encounter Date Diagnosis Assessment Notes Jul, Puncture wound of finger, initial encounter (ICD-10 - S61.239A) Keep the wound clean and dry. Apply antibiotic ointment and a Band-Aid to the wound daily. Take cephalexin as prescribed until gone. Follow-up with your family physician for any worsening symptoms or concerns. Jul, Other Puncture wound home care material was printed [facility] Other History general Narrative - Reported Note Date & Type Note Facility History general Narrative - Reported Type Medical History allergies Surgical History tonsillectomy and adenoidectomy Surgical History pet placement Hospitalization History see above [facility] Other Summary Purpose Family History No Family History Records Found Advance Directives No Advanced Directives Records Found Additional Source Comments REASON FOR VISIT (unrecogniz ed section and content) PUNCTURE WOUND LEFT INDEX FI NGER LAST NIGHT, NEEDS TETANUS UPDATED INFORMATION SOURCE (unrecogn ized section and content) DATE CREATED AUTHOR 09/08/2022 [facility] FOR RECORDS PERTAINING TO PATIENTS WHO ARE OR HAVE BEEN ENROLLED IN A CHEMICAL DEPENDENCY/SUBSTANCEABUSE PROGRAM, SOME INFORMATION MAY BE OMITTED. This clinical summary was aggregated from multiple sources. Caution should be exercised in using it in the provision of clinical care. This summary normalizes information from multiple sources, and as a consequence, information in this document may materially change the coding, format and clinical context of patient data. In addition, data may be omitted in some cases. CLINICAL DECISIONS SHOULD BE BASED ON THE PRIMARY CLINICAL RECORDS. [employer] [facility]. provides no warranty or guarantee of the accuracy or completeness of information in this document.
[2024-03-05 08:19] LABS: Estimated Average Glucose 100 mg/dL; Glycohemoglobin A1C 5.1 % (4.5-6.2)
[2024-03-05 08:40] LABS: Basophils Percent Auto 0.3 % (0.2-2.0); Eosinophils Absolute Auto 0.4 10^3/uL (0.0-0.7); Eosinophils Percent Auto 4.5 % (0.9-7.0); Hematocrit 40.6 % (36.0-48.0); Hemoglobin 13.2 g/dL (12.0-16.0); Immature Granulocytes Abs Auto 0.02 10^3/uL (0.00-0.03); Immature Granulocytes Pct Auto 0.3 % (0.0-0.5); Lymphocytes Absolute Auto 2.6 10^3/uL (1.2-3.8); Lymphocytes Percent Auto 33.5 % (20.5-60.0); Mean Corpuscular HGB Conc 32.5 g/dL (29.9-35.2); Mean Corpuscular Hemoglobin 28.3 pg (26.7-34.0); Mean Corpuscular Volume 86.9 fL (81.0-99.0); Mean Platelet Volume 8.4 fL (9.5-13.5); Monocytes Absolute Auto 0.4 10^3/uL (0.3-0.8); Monocytes Percent Auto 5.6 % (1.7-12.0); Neutrophils Absolute Auto 4.3 10^3/uL (1.4-6.5); Neutrophils Percent Auto 55.8 % (43.0-75.0); Platelet Count 305 10^3/uL (150-450); Red Blood Count 4.67 10^6/uL (4.20-5.40); Red Cell Distribution Width 13.3 % (11.0-15.0); White Blood Count 7.7 10^3/uL (4.0-11.0)
[2024-03-05 09:19] LABS: Alanine Aminotransferase 20 U/L (14-59); Albumin Globulin Ratio 0.9; Albumin Level 2.9 g/dL (3.4-5.0); Alkaline Phosphatase 101 U/L (46-116); Anion Gap 11.6; Aspartate Amino Transferase <5 U/L (15-37); BUN Creatinine Ratio 22.4; Bilirubin Total 0.3 mg/dL (0.2-1.0); Calcium 8.4 mg/dL (8.5-10.1); Carbon Dioxide 29.3 mmol/L (21.0-32.0); Chloride 107 mmol/L (98-107); Chol HDL Ratio 3.5; Cholesterol 171 mg/dL (<=200); Estimated GFR (African America >60 (>=60 mL/min/1.73m^2); Estimated GFR (Non-African Ame >60 (>=60 mL/min/1.73m^2); Free T3 2.44 pg/mL (2.18-3.98); Globulin 3.4 g/dL; Glucose 92 mg/dL (74-106); HDL Cholesterol 49 mg/dL (40-60); LDL Cholesterol Calculated 97.4 mg/dL; Potassium 3.9 mmol/L (3.5-5.1); Sodium 144 mmol/L (136-145); Thyroid Stimulating Hormone 1.451 uIU/mL (0.358-3.740); Total Protein 6.3 g/dL (6.4-8.2); Triglycerides 123 mg/dL (<=150); VLDL CHOLESTEROL 24.6 mg/dL
== END 2024-03-05 07:51 | disposition home or self-care (01) ==
PROVIDERS: PCP Family Medicine; Visit Provider Family Medicine
DX: Z00.00 Encounter for general adult medical examination without abnormal findings (principal)
CPT/HCPCS: 36415; 80053; 80061; 83036; 83525; 83540; 84436; 84443; 84481; 85025

== ENCOUNTER 2024-12-08 11:10 | Outpatient (OUT) | payer OTHER, SELFPAY ==
--- OUTSIDE RECORDS SUMMARY | 2024-08-22 12:45 | XMS_ITS ---
Author Organization [facility] [place] Address [address] [place] [address] Care Team Providers Care Laundry Technician Name Role Phone Emil Gant Primary Care Provider Allergies Allergen (clinical drug ingredient) Drug/Non Drug Allergy documented on EMR Reaction Allergy Type Onset Date Status nuts (uncoded) anaphylaxis Allergy Act amish strawberry allergenic extract strawberry (uncoded) anaphylaxis Allergy Active sulfamethoxazole / trimethoprim Bactrim cotton mouth- family severe reaction Drug Allergy Active REASON FOR VISIT Presents to office with daughter. Woke yesterday am with right ear pain. Medications Medication SIG (Take, Route, Frequency, Duration) Notes Start Date End Date Status Ciprofloxacin HCl 500 MG 1 tablet Orally every 12 hrs for 10 days 08/22/2024 Active Ryzlgokm-Efctymkul-ZA 3.5-35644-5 4 drops into affected ear Otic Three times a day 08/22/2024 Active Claritin 10 MG 1 tablet Orally Once a day Active Social History Tobacco Use: Social History Observation Description Date Details (start date - stop date) Never Smoker NA - NA Tobacco Use/Smoking Question Answer Notes Patient is a nonsmoker AUDIT-C (Standard) Question Answer Notes Did you have a drink containing alcohol in the p ast year? No Points 0 Interpretation Negative Problems Problem Type SNOMED Code ICD Code Onset Dates Problem Status W/U Status Risk Notes Problem Otitis externa (8281557) Otitis externa (H60.90) Active confirmed Problem Otitis externa of right ear (441430251499 9101) External otitis of right ear (H60.91) Active confirmed Vital Signs Blood pressure systolic 112 mm Hg 08/23/19 25 Blood pressure diastolic 84 mm Hg 025 Height 66 in 08/22/2024 Weight 428.4 lbs 08/22/2024 BMI 69.14 kg/m2 08/22/2024 Encounters Encounter Location Date Provider Diagnosis [facility] [address] [place] [address] 08/22/2024 Emil Hoy Otitis externa H60.9 0 and External otitis of right ear H60.91 Assessments Encounter Date Diagnosis (ICD Code) Assessment Notes Treatment Notes Treatment Clinical Notes Section Notes 08/22/2024 Otitis externa (ICD-10 - H60.90) 08/22/2024 External otitis of right ear (ICD-10 - H60.91) Plan Of Treatment Medication Medication Name Sig Start Date Stop Date Notes Ciprofloxacin HCl 500 MG 1 tablet Orally every 12 hrs for 10 days 08/22/2024 Dwdhanhf-Pqaotudio-GU 3.5-50454-4 4 drops into affected ear Otic Three times a day 08/22/2024 Progress Notes * Doroteo IGLESIASa NDOB:[birth year] (33 yo F)Acc No.[id number]:08/22/2024 Progress Note Patient: Marlena MAZARIEGOS Provider: Marisel Gant ([facility])MD :1990 A ge:33 Y S ex:Female Date:08/22/2024 Address:[address] [place], [place] [id number] Check In:04:38 PM ESTCheck O ut:05:06 PM EST Subjective: * Chief Complaints: * P resents to office with daughter. Woke yesterday am with right ear pain. * HPI: G eneral: R ear pain - no other cold symptosm. 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 Modified On:10/29/2022 Status:confirmed J02.0 Strep pharyngitis Modified On:04/06/2023 Status:confirmed J01.90 Acute sinusitis Modified On:06/15/2023 Status:confirmed G47.00 Insomnia Modified On:06/24/2023 Status:confirmed F41.1 Generalized anxiety disorder Modified On:06/24/2023 Status:confirmed M79.672 Foot pain, left Modified On:07/31/2023 Status:confirmed R80.9 Proteinuria Modified On:11/26/2023 Status:confirmed Z00.00 Well adult Modified On:03/04/2024 Status:confirmed H60.90 Otitis externa Modified On:08/22/2024 Status:confirmed H60.91 External otitis of r ight ear Modified On:08/23/2024 Status:confirmed * Medical History: * Surgical History: l eft foot surgery; 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 M other: alive. B karinaer(s): alive. S ister(s): alive. D anika(s): alive. P aternal Grandmother: stroke, diagnosed with Unspecified essential hypertension, Diabetes mellitus without mention of complication, type II or unspecified type, not stated as uncontrolled. M aternal Grandfather: , diagnosed with Unspecified essential hypertension, Unspecified heart disease. M aternal Grandmother: , diagnosed with Other malignant neoplasm of unspecified site. P aternal Grandfather: diagnosed with Unspecified essential hypertension. 1 brother(s) , 1 sister(s) . 1 daughter(s) . . * Social History: T obacco Use: T obacco Use/Smoking P atient is a n onsmoker D rug/Alcohol: A SOFI-C (Standard) D id you have a drink containing alcohol in the past year? N o P oints 0 I nterpretation N egative * Medications: T akingClaritin(Loratadine) 10 MG Tablet 1 tablet Orally Once a day Taking Claritin(Loratadine) 10 MG Tablet 1 tablet Orally Once a day DiscontinuedAmoxicillin-Pot Clavulanate 875-125 MG Tablet 1 tablet Orally every 12 hrs ARIPiprazole 20 MG Tablet 1 tablet Orally Once a day busPIRone HCl 15 MG Tablet 1 tablet Orally Twice a day Meloxicam 15 MG Tablet 1 tablet Orally Once a day Omeprazole 40 MG Capsule Delayed Release 1 capsule 30 minutes before morning meal Orally Once a day predniSONE 20 MG Tablet 3 tablets Orally Once a day tiZANidine HCl 4 MG Tablet 2 tablets Orally at bedtime Zovirax(Acyclovir) 5 % Cream 1 application Externally Five times a day Medication List reviewed and reconciled with the patientDiscontinued Amoxicillin-Pot Clavulanate 875-125 MG Tablet 1 tablet Orally every 12 hrs Discontinued ARIPiprazole 20 MG Tablet 1 tablet Orally Once a day Discontinued busPIRone HCl 15 MG Tablet 1 tablet Orally Twice a day Discontinued Meloxicam 15 MG Tablet 1 tablet Orally Once a day Discontinued Omeprazole 40 MG Capsule Delayed Release 1 capsule 30 minutes before morning meal Orally Once a day Discontinued predniSONE 20 MG Tablet 3 tablets Orally Once a day Discontinued tiZANidine HCl 4 MG Tablet 2 tablets Orally at bedtime Discontinued Zovirax(Acyclovir) 5 % Cream 1 application Externally Five times a day Medication List reviewed and reconciled with the patient * Allergies: B actrim: cotton mouth- family severe reaction - Allergystrawberry: anaphylaxis - Allergynuts: anaphylaxis - Allergyno[Allergies Verified] Objective: * Vitals: W t:428.4lbs, Ht: 66 in, BP:112/84mm Hg, BMI:69.14Index, Ht-cm: 167.64 cm, Wt-k.32 kg. * Examination: A bdomen Exam:: R OE. Assessment: * Assessment: 1. O titis externa - H60.90 (Primary) 2 . E xternal otitis of right ear - H60.91 Plan: * Treatment: * Procedure Codes: * Preventive Medicine: Screenings/Counseling: B MN ACTION PLAN Above Normal BMI Follow-up D ietary management education, guidance, and counseling See treatment section of progress note for complete details of management plan. * * Sign off status: Completed Visit Status: C HK (Check Out) true * Provider: Marisel Gant ([facility])MD Date: 0 08/22/2024 Generated for Letitiai ng/Fadarielg/eTransmitting on: 0 12/08/2024 11:16 AM EDT History and Physical Notes * HPI (History of Present Illness) Category Sub-Category Detail Notes Category Not es General R ear pain - no other cold symptosm Examination Category Sub-Category Detail Notes Category Not es Abdomen Exam: R OE
--- OUTSIDE RECORDS SUMMARY | 2024-12-05 10:10 | XMS_ITS ---
Author Organization [facility] [place] Address [address] [place] [address] Care Team Providers Care Rf Design Engineer Name Role Phone Emil Gant Primary Care Provider [phone] REASON FOR VISIT request Medications Medication SIG (Take, Route, Fr equency, Duration) Notes Start Date End Date Status Meloxicam 15 MG 1 tablet Orally Once a day for 30 days 12/05/2024 Active Encounters Encounter Location Date Provider Diagnosis [facility] [address] [place] [address] 12/05/2024 Emil Gant Plan Of Treatment Medication Medication Name Sig Start Date Stop Date Notes Meloxicam 15 MG 1 tablet Orally Once a day for 30 days 02/2025 Progress Notes * HARRIS Marlena NDOB:[birth year] (33 yo F)Acc No.[id number]:12/05/2024 Patient: Marlena MAZARIEGOS Julien :1990 A ge:33 Y S ex:Female Address:[address] [place] [address], [address] * Refills Start Meloxicam Tablet, 15 MG, Orally, 30, 1 tablet, Once a day, 30 days, Refills=11 * true * Date: Generated for Printi ng/Faxing/eTransmitting on: 0 12/08/2024 11:15 AM EDT
--- OUTSIDE RECORDS SUMMARY | 2024-12-08 11:15 | XMS_ITS | Clinical Summary ---
Author Organization [facility] Address [address] [place] [address] Care Team Providers Care Window Cutter Name Role Phone Unavailable Primary Care Provider Unavailabl e Social History Tobacco Use Types Packs/Day Years Used Date Smoking Tobacco: Never Assessed Comments Unknown Sex and Gender Information Value Date Recorded Sex Assigned at Female 01/25/2024 10:22 AM EDT Legal Sex Female 7:23 PM EDT Gender Identity Female 01/25/2024 10:22 AM EDT Sexual Orientation Lesbian 01/25/2024 10 :22 AM EDT Last Filed Vital Signs Vital Sign Reading Time Taken Comments Blood Pressure 143/94 11/25/2021 12:00 PM EDT Pulse - - Temperature - - Respiratory Rate - - Oxygen Saturation - - Inhaled Oxygen Concentration - - Weight 195 kg (429 lb) 12/09/2021 12:00 PM EDT Height 165.1 cm (5' 5 ) 12/09/2021 12:00 PM EDT Body Mass Index 71.39 12/09/2021 12:00 PM EDT Plan of Treatment Not on file
--- OUTSIDE RECORDS SUMMARY | 2024-12-08 11:16 | XMS_ITS | Patient Health Record ---
Author Organization [facility] [place] Address [address] [place] [address] Care Team Providers Care Gas Mask Assembler Name Role Phone Emil Gant Primary Care Provider Allergies Allergen (clinical drug ingredient) Drug/Non Drug Allergy documented on EMR Reaction Allergy Type Onset Date Status nuts (uncoded) anaphylaxis Allergy Act amish strawberry allergenic extract strawberry (uncoded) anaphylaxis Allergy Active sulfamethoxazole / trimethoprim Bactrim cotton mouth- family severe reaction Drug Allergy Active Results Component Value Reference Range Notes GLYCOHEMOGLOBIN A1C Reviewed date:03/05/2024 04:15:51 PM Interpretation: Performing Lab: Notes/Report: [facility] , Glycohemoglobin A1C 5.1 4.5-6.2 % ADA RECOMMENDED LIMIT 4.0 - 6.0 ADA THERAPEUTIC TARGET < 7.0 ACTION SUGGESTED > 7.0 Estimated Average Glucose 100 Performing Lab: see note - [facility] LB INSULIN Reviewed date:03/07/2024 06:56:56 PM Interpretation: Performing Lab: Notes/Report: [facility] , Insulin 24.0 2.6-24.9 uIU/mL Performed at: - [facility] [id number] Automatic Engraver: Pal Grace PhD, Phone: [phone] Performing Lab: see note - [facility] LB CBC AUTO DIFF Reviewed date:03/05/2024 04:15:51 PM Interpretation: Performing Lab: Notes/Report: [facility] , White Blood Count 7.7 4.0-11.0 10 3/uL Red Blood Count 4.67 4.20-5.40 10 6/uL Hemoglobin 13.2 12.0-16.0 g/dL Hematocrit 40.6 36.0-48.0 % Mean Corpuscular Volume 86.9 81.0-99.0 fL Mean Corpuscular Hemoglobin 28.3 26.7-34.0 pg Mean Corpuscular HGB Conc 32.5 29.9-35.2 g/dL Red Cell Distribution Width 13.3 11.0-15.0 % Platelet Count 305 150-450 10 3/uL Mean Platelet Volume 8.4 9.5-13.5 fL Neutrophils Percent Auto 55.8 43.0-75.0 % Lymphocytes Percent Auto 33.5 20.5-60.0 % Monocytes Percent Auto 5.6 1.7-12.0 % Eosinophils Percent Auto 4.5 0.9-7.0 % Basophils Percent Auto 0.3 0.2-2.0 % Immature Granulocytes Pct Auto 0.3 0.0-0.5 % Neutrophils Absolute Auto 4.3 1.4-6.5 10 3/uL Lymphocytes Absolute Auto 2.6 1.2-3.8 10 3/uL Monocytes Absolute Auto 0.4 0.3-0.8 10 3/uL Eosinophils Absolute Auto 0.4 0.0-0.7 10 3/uL Basophils Absolute Auto 0.0 0.0-0.1 10 3/uL Immature Granulocytes Abs Auto 0.02 0.00-0.03 10 3/uL Performing Lab: see note ML - [facility] LB TSH Reviewed date:03/05/2024 04:15:51 PM Interpretation: Performing Lab: Notes/Report: [facility] , Thyroid Stimulating Hormone 1.451 0.358-3.740 u IU/mL Performing Lab: see note ML - [facility] LB T4 Reviewed date:03/05/2024 04:15:51 PM Interpretation: Performing Lab: Notes/Report: [facility] , T4 Thyroxine 10.20 4.80-13.90 ug/dL Performing Lab: see note - [facility] LB PROF 14(COMP METB) Reviewed date:03/05/2024 04:15:51 PM Interpretation: Performing Lab: Notes/Report: [facility] , Sodium 144 136-145 mmol/L Potassium 3.9 3.5-5.1 mmol/L Chloride 107 98-107 mmol/L Carbon Dioxide 29.3 21.0-32.0 mmol/L Anion Gap 11.6 Glucose 92 74-106 mg/dL Blood Urea Nitrogen 19.0 7.0-18.0 mg/dL Creatinine 0.85 0.55-1.02 mg/dL Estimated GFR ( Alissa >60 >=60 mL/min/1.73m 2 Estimated GFR (Non- Shante >60 >=60 mL/min/1.73m 2 BUN Creatinine Ratio 22.4 Calcium 8.4 8.5-10.1 mg/dL Bilirubin Total 0.3 0.2-1.0 mg/dL Aspartate Amino Transferase <5 15-37 U/L Alanine Aminotransferase 20 14-59 U/L Alkaline Phosphatase 101 46-116 U/L Total Protein 6.3 6.4-8.2 g/dL Albumin Level 2.9 3.4-5.0 g/dL Globulin 3.4 Albumin Globulin Ratio 0.9 Performing Lab: see note ML - [facility] LB LIPID PROFILE Reviewed date:03/05/2024 04:15:51 PM Interpretation: Performing Lab: Notes/Report: [facility] , Triglycerides 123 <=150 mg/dL Cholesterol 171 <=200 mg/dL HDL Cholesterol 49 40-60 mg/dL > or =60 mg/dl - LOW CARDIOVASCULAR RISK <40 mg/dl - HIGH CARDIOVASCULAR RISK LDL Cholesterol Calculated 97.4 <100 mg/dl OPTIMAL 100-129 mg/dl NEAR OR ABOVE OPTIMAL 130-159 mg/dl BORDERLINE HIGH 160-189 mg/dl HIGH >190 mg/dl VERY HIGH VLDL CHOLESTEROL 24.6 Chol HDL Ratio 3.5 3.3 - 4.4 LOW RISK 4.4 - 7.1 AVERAGE RISK 7.1 - 11.0 MODERATE RISK >11.0 HIGH RISK Performing Lab: see note ML - [facility] LB IRON Reviewed date:03/05/2024 04:15:51 PM Interpretation: Performing Lab: Notes/Report: [facility] , Iron 54.0 50.0-170.0 ug/dL Performing Lab: see note ML - [facility] LB FREE T3 Reviewed date:03/05/2024 04:15:51 PM Interpretation: Performing Lab: Notes/Report: [facility] , Free T3 2.44 2.18-3.98 pg/mL Performing Lab: see note ML - [facility] LB Reason For Referral No Information Medications Medication SIG (Take, Route, Fr equency, Duration) Notes Start Date End Date Status Claritin 10 MG 1 tablet Orally Once a day Active Meloxicam 15 MG 1 tablet Orally Once a day for 30 days 12/05/2024 Active Social History Tobacco Use: Social History Observation Description Date Details (start date - stop date) Never Smoker NA - NA Tobacco Use/Smoking Question Answer Notes Patient is a nonsmoker Alcohol Screen (Audit-C) Question Answer Notes Did you have a drink containing alcohol in the p ast year? No Points 0 Interpretation Negative AUDIT-C (Standard) Question Answer Notes Did you have a drink containing alcohol in the p ast year? No Points 0 Interpretation Negative Problems Problem Type SNOMED Code ICD Code Onset Dates Problem Status W/U Status Risk Notes Problem Generalized anxiety disorder (81635726) Generalized anxiety disorder (F41.1) Active confirmed Problem 653545877 Other specified mononeuropathies of left lower limb (G57.82) Active confirmed Problem Proteinuria (25250842) Proteinuria (R80.9) Active confirmed Problem Insomnia (683849986) Insomnia (G47.00) Active confirmed Problem Pain in limb (09691649) Foot pain, left (M79.672) Active confirmed Problem Acute sinusitis (12094647) Acute sinusitis (J01.90) Active confirmed Problem Well adult (256073747) Well adult (Z00.00) Active confirmed Problem Otitis externa (9298135) Otitis externa (H60.90) Active confirmed Problem Streptococcal sore throat (disorder) (78967752) Strep pharyngitis (J02.0) Active confirmed Problem Right flank pain (969862271) Right flank pain (R10.9) Active confirmed Problem Peroneal tendinitis (63357403) Peroneal tendinitis, left (M76.72) Active confirmed Problem Otitis externa of right ear (273606750137090 1) External otitis of right ear (H60.91) Active confirmed Problem Late effect of fracture of lower extremities (57046162) Closed displaced fracture of fifth metatarsal bone of left foot, sequela (S92.352S) Active confirmed Vital Signs Temperature 100.0 degrees Fahrenheit 05/11/2024 Blood pressure diastolic 82 mm Hg 12/07/2024 Height 66 in 12/07/2024 Blood pressure systolic 114 mm Hg 12/07/2024 Weight 407 lbs 12/07/2024 BMI 65.68 kg/m2 12/07/2024 Encounters Encounter Location Date Provider Diagnosis [facility] [address] [place] [address] 05/11/2024 Emil Hoy Acute bronchitis, unspecified organism J20.[address] [address] 03/04/2024 Emil Hoy Well adult Z00.[address] [address] 08/22/2024 Emil Hoy Otitis externa H60.9 0 and External otitis of right ear H60.[address] [address] 12/07/2024 Emil Hoy Right flank pain R10 .9 and Well adult Z00.00 [facility] [address] [place] [address] 02/05/2024 Emil Hoy [address] [address] 03/05/2024 Emil Hoy [address] [address] 12/05/2024 Emil Hoy Assessments Encounter Date Diagnosis (ICD Code) Assessment Notes Treatment Notes Treatment Clinical Notes Section Notes 03/04/2024 Well adult (ICD-10 - Z00.00) + FH breast cancer - needs baseline mammogram 05/11/2024 Acute bronchitis, unspecified organism (ICD-10 - J20.9) Rest and drink more liquids, especially water. You may use a humidifier or vaporizer to help keep the drainage moist. Qyaj-fnq-bbtxdmj Nasal Saline may help the stuffy and runny nose. Use Ibuprofen and or Tylenol as needed for fever, chills, body aches or pain. Children 5 years old should not be given aexu-hwx-kbkohis cough and cold medications such as guaifenesin and dextromethorphan. If you're over age 5, you may try wiwn-iry-nxxjxub cold medications such as guaifenesin and dextromethorphan, or multi-symptom cold reliever such as Dayquil to help reduce the symptoms. Antibiotics have been prescribed. You should take these until completed and follow the directions. Antibiotics can sometimes cause upset stomach, and in rare cases, serious allergic reactions or serious gastrointestinal problems. If you start having severe abdominal pain, severe vomiting, or bloody diarrhea, you should be reevaluated by your physician or urgent care immediately. Follow up with your Primary Care Provider or return to clinic if symptoms do not improve within 3-5 days. If you develop severe symptoms such as shortness of breath, repeated vomiting, coughing up blood, or chest pain you should go to the emergency room or call 911 08/22/2024 Otitis externa (ICD-10 - H60.90) 08/22/2024 External otitis of right ear (ICD-10 - H60.91) 12/07/2024 Right flank pain (ICD-10 - R10.9) 12/07/2024 Well adult (ICD-10 - Z00.00) Plan Of Treatment Pending Test Test Name Order Date CMP (COMPLETE METABOLIC PANEL) 4 CMP (COMPLETE METABOLIC PANEL) 4 UA (URINALYSIS, COMPLETE) 11/27/2023 CULTURE, URINE w SENSITIVITY 11/27/2023 HEMOGLOBIN A1C (GLYCO) 12/07/2024 HEMOGLOBIN A1C (GLYCO) 03/04/2024 HEMOGLOBIN A1C (GLYCO) 11/26/2023 IRON, TOTAL 03/04/2024 IRON, TOTAL 12/07/2024 LIPID PANEL (CHOL/TRIG/HDL/LDL) 12/08/19 25 LIPID PANEL (CHOL/TRIG/HDL/LDL) 03/04/20 24 CBC WITH DIFF 03/04/2024 CBC WITH DIFF 11/26/2023 Urinalysis Microscopic 11/26/2023 Urinalysis Microscopic 12/07/2024 RANDOM URINE PROTEIN 11/26/2023 Insulin Level 03/04/2024 Insulin Level 12/07/2024 CULTURE URINE 12/07/2024 THYROID PANEL (T4/TSH/FREE T3) 4 THYROID PANEL (T4/TSH/FREE T3) 4 THYROID PANEL (T4/TSH/FREE T3) 5 MM screening mammo BI 03/04/2024 CMP (COMP MET [place]NER) w/eGFR CKD-EPI 2024 CBC WITH DIFF 12/07/2024 Insurance Providers Payer Name Payer Address Payer Phone Subscriber Number Group Number Insured Name Patient Relationship to Insured Coverage Start Date Coverage End Date [employer] CLAIM ADMIN [address] [place] [address] [id number] Marlena Iglesias Self - patient is the insured Medications Administered Medication Instructions Date of Administration Dosage Notes Kenalog-40 11/26/2023 120 mg 120 Medical (General) History Medical History History ICD Code Closed displaced fracture of fifth metat arsal bone of left foot, sequela S92.352S Peroneal tendinitis, left M76.72 Foot pain, left M79.672 Surgical History Surgery Date(Month/Year) tonsillectomy and adenoidectomy left foot surgery; 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
--- OUTSIDE RECORDS SUMMARY | 2024-12-08 11:17 | XMS_ITS | CCD ---
Author Organization [facility] CliniSywy Care Team Providers Care Raw Juice Weigher Name Role Phone Maryellen Cintron Unavailable STEVEN Kelley, DR KOTHARI Primary Care Unavailable ZIEBER, DR JOHNATHAN Harding Consulting Unavailable TATI TOVAR Admitting Unavailable GUYTATI Attending Unavailable TATI TOVAR Consulting Unavailable KARENY [...] HOY ., DR KOTHARI Attending Unavailable AICHHOLZ, SIMULATION TECHNICIAN GALDINO Primary Care Unavailable WEST, DR ABIMBOLA [...] WEST, DR ABIMBOLA Adame Consulting Unavailable AICHHOLZ, SIMULATION TECHNICIAN GALDINO Primary Care Unavailable GUY, TATI Admitting Unavailable GUYTATI Attending Unavailable GUY, TATI Consulting Unavailable AICHHOLZ, SIMULATION TECHNICIAN GALDINO Primary Care Unavailable AICHHOLZ, SIMULATION TECHNICIAN GALDINO Consulting Unavailable AICHHOLZ, SIMULATION TECHNICIAN GALDINO Attending Unavailable AICHHOLZ, SIMULATION TECHNICIAN GALDINO Admitting Unavailable AICHHOLZ, SIMULATION TECHNICIAN GALDINO Primary Care Unavailable AICHHOLZ, SIMULATION TECHNICIAN GALDINO Consulting Unavailable AICHHOLZ, SIMULATION TECHNICIAN GALDINO Attending Unavailable AICHHOLZ, SIMULATION TECHNICIAN GALDINO Admitting Unavailable HOY ., DR KOTHARI [...] Unavailable ANA, DR AMISH Harding Admitting Unavailable AAN, DR AMISH Harding Consulting Unavailable ANA, DR [...] DR BARRETT Attending Unavailable MARKER ., DR BARRETT Admitting Unavailable MARKER ., DR BARRETT Consulting Unavailable PEARL, JOHNATHAN Joiner Admitting Unavailable HOY ., DR KOTHARI Primary Care Unavailable JOHNATHAN KANG Attending Unavailable Allergies Allergy Classification Reported Allergen(s) Allergy Type Date of Onset Reaction(s) Facility (1 source) Sharps Drug allergy Unknown [facility] [employer] Other (1 source) Sulfamethoxazole / Trimethoprim Drug Allergy Unknown [facility] [employer] Other (1 source) tree nut, unspecified Drug allergy Unknown [facility] [employer] Other (2 sources) strawberry allergenic extract Drug Allergy [facility] (2 sources) Sulfamethoxazole / Trimethoprim Drug Allergy 6 [facility] (2 sources) tree nut, unspecified Drug allergy (disorder) [facility] Medications Current Medications Medication Drug [...] metacarpal bone, sequela; Translations: [[facility] BONE SEQ] Onset: 11-13-2021 Episodic Open wounds of extremities (1 source) Puncture wound without foreign body of unspecified finger without damage to nail, initial encounter Onset: 08-21-2021 Resolved: 08-21-2021 Episodic Other aftercare (1 source) Other equipment operator intermodal yard (current) drug therapy; 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 When there are no FDA-approved or cleared tests available, and other criteria are met, FDA can make tests available under an emergency access mechanism called an Emergency Use Authorization (EUA). The EUA for this test is supported by the [place] of Health and Human Service's (HHS's) declaration [...] used). Performed By: #### C VDTBH #### [facility] [address] [place] [address] Dr. Pat Sarabia INFLUENZA A AND B AGon 04-03 [facility] SEE BELOW Normal [facility] Comment on above: Result Comment: Nega tive for Flu A protein angiten. Infection due to Flu A cannot be ruled out. Flu A angiten in the sample may be below the detection limit of the test. Performed By: #### I NFLUAB #### [facility] [address] [place] [address] Dr. Pat [facility] SEE BELOW Normal [facility] Comment on above: Result Comment: Nega tive for Flu B protein antigen. Infection due to Flu B cannot be ruled out. Flu B antigen in the sample may be below the detection limit of the test. Performed By: #### I NFLUAB #### [facility] [address] [address] [address] Pat Sarabia INFLUENZA A AG Negative Normal NEGATIVE SEE COMMENT [facility] Comment on above: Performed By: #### I NFLUAB #### [facility] [address] [address] [address] Pat Sarabia INFLUENZA B AG Negative Normal NEGATIVE SEE COMMENT [facility] Comment on above: Performed By: #### I NFLUAB #### [facility] [address] [address] [address] Pat Sarabia INTERNAL CONTROLS Within Normal Limits Normal Wi thin Normal Limits [facility] Comment on above: Performed By: #### I NFLUAB #### [facility] [address] [place] [address] Dr. Pat Sarabia POINT OF CARE GLUCOSEon 12-26 Glucose [Mass/Vol] 101 mg/dL Normal 74-106 [facility] Comment on above: Performed By: #### A 1C #### [facility] [address] [address] [address] Pat Sarabia Glucose [Mass/Vol] 89 mg/dL Normal 74-106 [facility] Comment on above: Performed By: #### P OCGLUC #### [facility] [address] [place] [address] Dr. Pat Sarabia PREG HCG QUALon 01-13-2022 , QUAL Negative Normal NEGATIVE [facility] Comment on above: Performed By: #### P REG #### [facility] [address] [place] [address] Dr. Pat Sarabia Covid-19 PCR (CVDTBH)on 12-26 SARS-CoV-2 (COVID-19) RNA COLBY+probe Ql (Unsp spec) Not detected Normal NOT DETECTED [facility] Comment on above: Result Comment: This test is not yet approved or cleared by the [place] FDA. When there are no FDA-approved or cleared tests available, and other criteria are met, FDA can make tests available under an emergency access mechanism called an Emergency Use Authorization (EUA). The EUA for this test is supported by the [place] of Health and Human Service's (HHS's) declaration [...] consistent with SARS-CoV-2. Performed By: #### C [facility] #### [facility] [address] [place] [address] Dr. Pat Sarabia XR LSPINE MIN 4 [...] JOHNATHAN MALDONADO Date: 2021 07:40 Normal [facility] CT ABD/PELVIS WO CONon 12-06 CT [...] tissues are not entirely included in the [id number], and there is significant artifact obscuring evaluation [...] LOLA MILLER Date: 2021-12-05 22:54 Normal [facility] ER URINE PROFILEon 2 Bilirubin Ql (U) Negative Normal NEGATIVE [facility] Comment on above: Performed By: #### E RUR #### [facility] [address] [place] [address] Dr. Pat Sarabia Clarity (U) CLEAR Normal CLEAR [facility] Comment on above: Performed By: #### E RUR #### [facility] [address] [place] [address] Dr. Pat Sarabia Color (U) LT. YELLOW Normal YELLOW [facility] Comment on above: Performed By: #### E RUR #### [facility] [address] [place] [address] Dr. Pat Sarabia ERUAHD A micrscopic examination will be performed if indicated. Normal [facility] Comment on above: Performed By: #### E RUR #### [facility] [address] [place] [address] Dr. Pat Sarabia Glucose Ql (U) Negative Normal NEGATIVE [facility] Comment on above: Performed By: #### E RUR #### [facility] [address] [place] [address] Dr. Pat Sarabia Hemoglobin Ql (U) Negative Normal NEGATIVE [facility] Comment on above: Performed By: #### E RUR #### [facility] [address] [place] [address] Dr. Pat Sarabia Ketones Ql (U) Negative Normal NEGATIVE [facility] Comment on above: Performed By: #### E RUR #### [facility] [address] [place] [address] Dr. Pat Sarabia LEUKOCYTES Negative Normal NEGATIVE [facility] Comment on above: Performed By: #### E RUR #### [facility] [address] [place] [address] Dr. Pat Sarabia Nitrite Ql (U) Negative Normal NEGATIVE [facility] Comment on above: Performed By: #### E RUR #### [facility] [address] [place] [address] Dr. Pat Sarabia pH (U) 6.0 [pH] Normal 5-9 [facility] Comment on above: Performed By: #### E RUR #### [facility] [address] [place] [address] Dr. Pat Sarabia SPEC GRAVITY 1.025 Normal 1.005-<=1.025 [facility] Comment on above: Performed By: #### E RUR #### [facility] [address] [place] [address] Dr. Pat Sarabia UA PROTEIN Negative Normal NEGATIVE/ TRACE [facility] Comment on above: Performed By: #### E RUR #### [facility] [address] [place] [address] Dr. Pat Sarabia UR MICRO IND NOT INDICATED Normal [facility] Comment on above: Performed By: #### E RUR #### [facility] [address] [place] [address] Dr. Pat Sarabia Urobilinogen Qn (U) 0.2 {Hattie'U}/dL Normal 0.2 - 1. 0 [facility] Comment on above: Performed By: #### E RUR #### [facility] [address] [place] [address] Dr. Pat Sarabia MRI FOOT LT WO [...] COMPARISON: None. TECHNIQUE: FINDINGS: IMPRESSION: Normal [facility] XR FOREIGN BODY EYEon 2021 XR [...] ABIMBOLA LEONE Date: 2021-09-25 09:17 Normal [facility] UA RANDOM W/MICROSCOPICon BACTERIA SMALL Abnormal NONE SEEN [facility] Comment on above: Performed By: #### U AMIC #### [facility] [address] [place] [address] Dr. Pat Sarabia Bilirubin Ql (U) Negative Normal NEGATIVE [facility] Comment on above: Performed By: #### U AMIC #### [facility] [address] [place] [address] Dr. Pat Sarabia CAST NONE SEEN Normal NONE SEEN [facility] Comment on above: Performed By: #### U AMIC #### [facility] [address] [place] [address] Dr. Pat Sarabia Clarity (U) CLEAR Normal CLEAR [facility] Comment on above: Performed By: #### U AMIC #### [facility] [address] [place] [address] Dr. Pat Sarabia Color (U) YELLOW Normal YELLOW [facility] Comment on above: Performed By: #### U AMIC #### [facility] [address] [address] [address] Pat Sarabia Crystals LM Nom (Urine sed) NONE SEEN Normal NONE SEEN [facility] Comment on above: Performed By: #### U AMIC #### [facility] [address] [address] [address] Pat Sarabia Epithelial cells LM Ql (Urine sed) MANY Abnormal NONE SEEN /RARE [facility] Comment on above: Performed By: #### U AMIC #### [facility] [address] [place] [address] Dr. Pat Sarabia Glucose Ql (U) Negative Normal NEGATIVE [facility] Comment on above: Performed By: #### U AMIC #### [facility] [address] [address] [address] Pat Sarabia Hemoglobin Ql (U) Negative Normal NEGATIVE [facility] Comment on above: Performed By: #### U AMIC #### [facility] [address] [address] [address] Pat Sarabia Ketones Ql (U) Negative Normal NEGATIVE [facility] Comment on above: Performed By: #### U AMIC #### [facility] [address] [address] [address] Pat Sarabia LEUKOCYTES Negative Normal NEGATIVE [facility] Comment on above: Performed By: #### U AMIC #### [facility] [address] [address] [address] Pat Sarabia MUCOUS NONE SEEN Normal NONE SEEN [facility] Comment on above: Performed By: #### U AMIC #### [facility] [address] [address] [address] Pat Sarabia Nitrite Ql (U) Negative Normal NEGATIVE [facility] Comment on above: Performed By: #### U AMIC #### [facility] [address] [place] [address] Dr. Pat Sarabia pH (U) 5.5 [pH] Normal 5-9 [facility] Comment on above: Performed By: #### U AMIC #### [facility] [address] [place] [address] Dr. Pat Sarabia RBC NONE SEEN Abnormal 0-2 [facility] Comment on above: Performed By: #### U AMIC #### [facility] [address] [place] [address] Dr. Pat Sarabia SPEC GRAVITY >=1.030 Abnormal 1.005-<=1.025 [facility] Comment on above: Performed By: #### U AMIC #### [facility] [address] [place] [address] Dr. Pat Sarabia UA PROTEIN Negative Normal NEGATIVE/ TRACE [facility] Comment on above: Performed By: #### U AMIC #### [facility] [address] [place] [address] Dr. Pat Sarabia Urobilinogen Qn (U) 0.2 {Hattie'U}/dL Normal 0.2 - 1. 0 [facility] Comment on above: Performed By: #### U AMIC #### [facility] [address] [place] [address] Dr. Pat Sarabia WBC 2-5 Abnormal NONE SEEN [facility] Comment on above: Performed By: #### U AMIC #### [facility] [address] [place] [address] Dr. Pat Sarabia CBC AUTO DIFFon 09-10-2021 BASO # 0.0 103/ul Normal 0.0-0.1 [facility] Comment on above: Performed By: #### C BC #### [facility] [address] [place] [address] Dr. Pat Sarabia Basophils/100 WBC (Bld) 0.4 % Normal 0.2-2.0 [facility] Comment on above: Performed By: #### C BC #### [facility] [address] [place] [address] Dr. Pat Sarabia EO # 0.2 103/ul Normal 0.0-0.7 [facility] Comment on above: Performed By: #### C BC #### [facility] [address] [place] [address] Dr. Pat Sarabia Eosinophils/100 WBC (Bld) 2.3 % Normal 0.9-7.0 [facility] Comment on above: Performed By: #### C BC #### [facility] [address] [place] [address] Dr. Pat Sarabia Erythrocyte distribution width (RBC) [Ratio] 13.8 % Normal 11.0-15.0 [facility] Comment on above: Performed By: #### C BC #### [facility] [address] [place] [address] Dr. Pat Sarabia Hematocrit (Bld) [Volume fraction] 41.4 % Normal 36.0-48.0 [facility] Comment on above: Performed By: #### C BC #### [facility] [address] [place] [address] Dr. Pat Sarabia Hemoglobin (Bld) [Mass/Vol] 13.1 g/dL Normal 12.0-16.0 [facility] Comment on above: Performed By: #### C BC #### [facility] [address] [place] [address] Dr. Pat Sarabia IG # 0.02 10e3/ul Normal 0.00-0.03 [facility] Comment on above: Performed By: #### C BC #### [facility] [address] [place] [address] Dr. Pat Sarabia IG % 0.2 % Normal 0.0-0.5 [facility] Comment on above: Performed By: #### C BC #### [facility] [address] [place] [address] Dr. Pat Sarabia LYMPH # 2.4 103/ul Normal 1.2-3.8 [facility] Comment on above: Performed By: #### C BC #### [facility] [address] [place] [address] Dr. Pat Sarabia Lymphocytes/100 WBC (Bld) 29.9 % Normal 20.5-60.0 [facility] Comment on above: Performed By: #### C BC #### [facility] [address] [place] [address] Dr. Pat Sarabia MANUAL DIFF REQ NO Normal [facility] Comment on above: Performed By: #### C BC #### [facility] [address] [address] [address] Pat Sarabia MCH (RBC) [Entitic mass] 27.6 pg Normal 26.7-34.0 [facility] Comment on above: Performed By: #### C BC #### [facility] [address] [place] [address] Dr. Pat Sarabia MCHC (RBC) [Mass/Vol] 31.6 g/dL Normal 29.9-35.2 [facility] Comment on above: Performed By: #### C BC #### [facility] [address] [place] [address] Dr. Pat Sarabia MCV (RBC) [Entitic vol] 87.3 fL Normal 81.0-99.0 [facility] Comment on above: Performed By: #### C BC #### [facility] [address] [place] [address] Dr. Pat Sarabia MONO # 0.5 103/ul Normal 0.3-0.8 [facility] Comment on above: Performed By: #### C BC #### [facility] [address] [place] [address] Dr. Pat Sarabia Monocytes/100 WBC (Bld) 5.9 % Normal 1.7-12.0 [facility] Comment on above: Performed By: #### C BC #### [facility] [address] [place] [address] Dr. Pat Sarabia NEUT # 5.0 103/ul Normal 1.4-6.5 [facility] Comment on above: Performed By: #### C BC #### [facility] [address] [place] [address] Dr. Pat Sarabia Neutrophils/100 WBC (Bld) 61.3 % Normal 43.0-75.0 [facility] Comment on above: Performed By: #### C BC #### [facility] [address] [place] [address] Dr. Pat Sarabia Platelet mean volume (Bld) [Entitic vol] 9.3 fL Critically low 9.5-13.5 [facility] Comment on above: Performed By: #### C BC #### [facility] [address] [address] [address] Pat Sarabia PLT 336 103/ul Normal 150-450 [facility] Comment on above: Performed By: #### C BC #### [facility] [address] [address] [address] Pat Sarabia RBC 4.74 106/ul Normal 4.20-5.40 [facility] Comment on above: Performed By: #### C BC #### [facility] [address] [address] [address] Pat Sarabia WBC 8.1 103/ul Normal 4.0-11.0 [facility] Comment on above: Performed By: #### C BC #### [facility] [address] [address] [address] Pat Sarabia FREE T4on 09-10-2021 Free T4 [Mass/Vol] 1.29 ng/dL Normal 0.76-1.46 [facility] Comment on above: Performed By: #### A 1C #### [facility] [address] [place] [address] Dr. Pat Sarabia GLYCOHEMOGLOBIN A1Con 2021 ADA RECOMMENDATION SEE BELOW Normal [facility] Comment on above: Result Comment: ADA RECOMMENDED LIMIT 4.0 - 6.0 ADA THERAPEUTIC TARGET < 7.0 ACTION SUGGESTED > 7.0 Performed By: #### A 1C #### [facility] [address] [address] [address] Pat Sarabia Glucose [Mass/Vol] 108 mg/dL Normal [facility] Comment on above: Performed By: #### A 1C #### [facility] [address] [address] [address] Pat Sarabia HbA1c (Bld) [Mass fraction] 5.4 % Normal 4.5-6.2 [facility] Comment on above: Performed By: #### A 1C #### [facility] [address] [address] [address] Pat Sarabia LIPID PROFILEon 09-10-2021 CHOL-HDL RATIO NORM SEE BELOW Normal [facility] Comment on above: Result Comment: 3.3 - 4.4 LOW RISK 4.4 - 7.1 AVERAGE RISK 7.1 - 11.0 MODERATE RISK >11.0 HIGH RISK Performed By: #### A 1C #### [facility] [address] [address] [address] Pat Sarabia Cholesterol [Mass/Vol] 151 mg/dL Normal <=200 [facility] Comment on above: Performed By: #### A 1C #### [facility] [address] [address] [address] Pat Sarabia Cholesterol in HDL [Mass/Vol] 41 mg/dL Normal 40-60 [facility] Comment on above: Performed By: #### A 1C #### [facility] [address] [address] [address] Pat Sarabia Cholesterol in LDL [Mass/Vol] 88.6 mg/dL Normal [facility] Comment on above: Performed By: #### A 1C #### [facility] [address] [address] [address] Pat Sarabia Cholesterol.total/Ch olesterol in HDL [Mass ratio] 3.7 {ratio} Normal [facility] Comment on above: Performed By: #### A 1C #### [facility] [address] [address] [address] Pat Sarabia HDL NORMAL > or = 60 mg/dl - LOW CARDIOVASCULAR RISK <40 mg/dl - HIGH CARDIOVASCULAR RISK Normal [facility] Comment on above: Performed By: #### A 1C #### [facility] [address] [address] [address] Pat Sarabia LDL CALC NORMAL SEE BELOW Normal [facility] Comment on above: Result Comment: <100 mg/dl OPTIMAL 100 - 129 mg/dl NEAR OR ABOVE OPTIMAL 130 - 159 mg/dl BORDERLINE HIGH 160 - 189 mg/dl HIGH >190 mg/dl VERY HIGH Performed By: #### A 1C #### [facility] [address] [address] [address] Pat Sarabia Triglyceride [Mass/Vol] 107 mg/dL Normal <=150 [facility] Comment on above: Performed By: #### A 1C #### [facility] [address] [address] [address] Pat Sarabia VLDL CALC 21.4 mg/dL Normal [facility] Comment on above: Performed By: #### A 1C #### [facility] [address] [address] [address] Pat Sarabia PROF 14(COMP METB)on 022 Albumin [Mass/Vol] 3.5 g/dL Normal 3.4-5.0 [facility] Comment on above: Performed By: #### A 1C #### [facility] [address] [address] [address] Pat Sarabia Albumin/Globulin [Mass ratio] 1.0 {ratio} Normal [facility] Comment on above: Performed By: #### A 1C #### [facility] [address] [place] [address] Dr. Pat Sarabia ALP [Catalytic activity/Vol] 86 U/L Normal 46-116 [facility] Comment on above: Performed By: #### A 1C #### [facility] [address] [address] [address] Pat Sarabia ALT [Catalytic activity/Vol] 23 U/L Normal 14-59 [facility] Comment on above: Performed By: #### A 1C #### [facility] [address] [place] [address] Dr. Pat Sarabia Anion gap [Moles/Vol] 10.8 mmol/L Normal [facility] Comment on above: Performed By: #### A 1C #### [facility] [address] [address] [address] Pat Sarabia AST [Catalytic activity/Vol] 16 U/L Normal 15-37 [facility] Comment on above: Performed By: #### A 1C #### [facility] [address] [place] [address] Dr. Pat Sarabia Bilirubin [Mass/Vol] 0.4 mg/dL Normal 0.2-1.0 [facility] Comment on above: Performed By: #### A 1C #### [facility] [address] [address] [address] Pat Sarabia Calcium [Mass/Vol] 9.1 mg/dL Normal 8.5-10.1 [facility] Comment on above: Performed By: #### A 1C #### [facility] [address] [address] [address] Pat Sarabia Chloride [Moles/Vol] 102 mmol/L Normal 98-107 [facility] Comment on above: Performed By: #### A 1C #### [facility] [address] [place] [address] Dr. Pat Sarabia CO2 [Moles/Vol] 29.0 mmol/L Normal 21.0-32.0 [facility] Comment on above: Performed By: #### A 1C #### [facility] [address] [place] [address] Dr. Pat Sarabia Creatinine [Mass/Vol] 0.80 mg/dL Normal 0.55-1.02 [facility] Comment on above: Performed By: #### A 1C #### [facility] [address] [place] [address] Dr. Pat Sarabia EGFR-AF NAURUAN >60 Normal >=60 [facility] Comment on above: Performed By: #### A 1C #### [facility] [address] [place] [address] Dr. Pat Sarabia EGFR-NON AF NAURUAN >60 Normal >=60 [facility] Comment on above: Performed By: #### A 1C #### [facility] [address] [place] [address] Dr. Pat Sarabia Globulin (S) [Mass/Vol] 3.6 g/dL Normal [facility] Comment on above: Performed By: #### A 1C #### [facility] [address] [place] [address] Dr. Pat Sarabia Glucose [Mass/Vol] 86 mg/dL Normal 74-106 [facility] Comment on above: Performed By: #### A 1C #### [facility] [facility] [address] [place] [address] Dr. Pat Sarabia Potassium [Moles/Vol] 3.8 mmol/L Normal 3.5-5.1 [facility] Comment on above: Performed By: #### A 1C #### [facility] [address] [place] [address] Dr. Pat Sarabia Protein [Mass/Vol] 7.1 g/dL Normal 6.4-8.2 [facility] Comment on above: Performed By: #### A 1C #### [facility] [address] [place] [address] Dr. Pat Sarabia Sodium [Moles/Vol] 138 mmol/L Normal 136-145 [facility] Comment on above: Performed By: #### A 1C #### [facility] [address] [place] [address] Dr. Pat Sarabia Urea nitrogen [Mass/Vol] 11.0 mg/dL Normal 7.0-18.0 [facility] Comment on above: Performed By: #### A 1C #### [facility] [address] [place] [address] Dr. Pat Sarabia Urea nitrogen/Creatinine [Mass ratio] 13.8 mg/mg Normal [facility] Comment on above: Performed By: #### A 1C #### [facility] [address] [place] [address] Dr. Pat Sarabia TSHon 09-10-2021 TSH 1.857 uIU/mL Normal 0.358-3.740 [facility] Comment on above: Performed By: #### A 1C #### [facility] [address] [place] [address] Dr. Pat Sarabia TSH RANGE SEE BELOW Normal [facility] Comment on above: Result Comment: <0.3 4 UIU/ml HYPERTHYROID 0.34-5.60 UIU/ml EUTHYROID >5.60 UIU/ml HYPOTHYROID Performed By: #### A 1C #### [facility] [address] [place] [address] Dr. Pat Sarabia Vital Signs Date Time Vital Sign Value Performing Clinician Facility 08-21-2021 11:50-0400 Body height 167.64 cm Maryellen Cintron Other [facility] 08-21-2021 11:50-0400 Body mass index (BMI) [Ratio] 66.98 kg/m2 Maryellen Cintron Other [facility] 08-21-2021 11:50-0400 Body temperature 97.7 [degF] Maryellen Cintron Other [facility] Other 08-21-2021 11:50-0400 Body weight 188.24 kg Maryellen Cintron Other [facility] Other 08-21-2021 11:50-0400 Diastolic blood pressure 97 mm[Hg] Maryellen Cintron Other [facility] Other 08-21-2021 11:50-0400 Respiratory rate 20 /min Maryellen Cintron Other [facility] Other 08-21-2021 11:50-0400 SaO2% (BldA) [Mass fraction] 99 % Maryellen Cintron Other [facility] Other 08-21-2021 11:50-0400 Systolic blood pressure 144 mm[Hg] Maryellen Saida Other [facility] Other Encounters Encounter Date Encounter Type Care Provider Facility Start: 09-11-[address] SANIYA Reddy ty:[facility] Start: 06-04-[address] SANIYA Reddy ty:[facility] Start: 04-03-2022 End: 04-03-[address] SANIYA HARRIS . Facility:[facility] Start: 04-01-2022 End: 04-02-[address] SANIYA HARRIS . Facility:[facility] Start: 03-04-2022 End: 03-05-[address] SANIYA HARRIS . Facility:[facility] Start: 02-05-2022 End: 02-06-2022 ambulatory JOHNATHAN Joiner [facility] [place] Facility:[facility] Start: 01-20-2022 End: 01-21-[address] SANIYA HARRIS . Facility:[facility] Start: 01-13-2022 End: 01-13-2022 ambulatory JOHNATHAN Joiner [facility] [place] Facility:[facility] Start: 01-11-2022 Encounter for other preprocedural examination [facility] Start: 01-11-2022 Encounter for preprocedural laboratory examination [facility] Start: 01-09-2022 End: 01-10-2022 ambulatory [facility] Marisel [facility] [place] Facility:[facility]1 Start: 01-07-2022 End: 01-08-2022 ambulatory [facility] Marisel [facility] [place] Facility:[facility]1 Start: 01-07-2022 End: 01-08-2022 Encounter for preprocedural laboratory examination [facility] Marisel [facility] [place] Facility:[facility]1 Start: 12-13-2021 End: [address] [...] medical examination without abnormal findings MIGUELANGEL TURPIN [facility] Start: 09-11-2021 End: 09-11-2021 ambulatory [employer]NIC[facility] GALDINO PAPI Facility:[facility]1 Start: 09-11-2021 End: 09-11-2021 Encounter for general adult medical examination without abnormal findings MIGUELANGEL TURPIN Facility:[facility]1 Start: 09-10-2021 End: 09-11-2021 ambulatory MIGUELANGEL AHMADI PAPI Facility:[facility]1 Start: 08-21-2021 End: 08-21-2021 ambulatory Maryellen Cintron Other [facility] Other Start: 08-21-2021 Office outpatient ne w 20 minutes Maryellen Cintron [facility] Immunizations Immunization Date Immunization Notes Care Provider Piyush abreu 08-21-2021 tetanus toxoid, reduced diphtheria toxoid, and acellular pertussis vaccine, adsorbed Maryellen Cintron Other [facility] Other Payers Date Payer Category Payer Unknown [id number] 2.16.84 [id number] 1990 Unknown [id number] 2.16.84 [id number] 1990 Unknown [id number] 2.16.84 0.1.040975.3.579.2.593 1990 Unknown [id number] 2..84 0.1.177319.3.579.2.593 1990 Unknown [id number] 2.16.84 0.1.580050.3.579.2.593 1990 Unknown [id number] 2.16.84 0.1.699929.3.579.2.593 1990 Unknown [id number] 2.16.84 0.1.969752.3.579.2.593 1990 Unknown [id number] 2.16.84 0.1.414194.3.579.2.593 1990 Unknown [id number] 2.16.84 0.1.284254.3.579.2.593 1990 Unknown [id number] .16.84 0.1.816203.3.579.2.593 1990 Unknown [id number] 2.16.84 0.1.667292.3.579.2.593 1990 Unknown [id number] 2.16.84 0.1.060114.3.579.2.593 1990 Unknown [id number] 2.16.84 0.1.040886.3.579.2.593 1990 Unknown [id number] 2.16.84 0.1.095906.3.579.2.593 1990 Unknown [id number] 2.16.84 0.1.273686.3.579.2.593 1990 Unknown [id number] 2.16.84 0.1.154921.3.579.2.593 1990 Unknown [id number] 2.16.84 0.1.512832.3.579.2.593 1959 Private Health Insurance [id number] 1959 Self-pay [id number] Social History Date Type Detail Facility Unknown if ever smoked [facility] Other Sex Assigned At Sex Assigned At Bir th [facility] Other Clinical Note 04-01-2022 Note Date & [...] by: JOHNATHAN MALDONADO Date: 2022-04-01 14:29 [facility] Clinical Note 03-05-2022 Note Date & [...] by: ABIMBOLA LEONE Date: 2022-03-05 08:42 [facility] Clinical Note 02-05-2022 Note Date & [...] by: JOHNATHAN MALDONADO Date: 2022-02-05 17:03 [facility] Clinical Note 01-13-2022 Note Date & [...] by: JOHNATHAN MALDONADO Date: 2022-01-13 16:27 [facility] Clinical Note 01-13-2022 Note Date & [...] by: JOHNATHAN MALDONADO Date: 2022-01-13 16:26 [facility] Clinical Note 10-03-2021 Note Date & [...] authenticated by: ABIMBOLA LEONE Date: 2021-10-03 10:07 [facility] Evaluation note 08-21-2021 Note Date & Type [...] Puncture wound home care material was printed [facility] Other History general Narrative - Reported Note Date & Type Note Facility History general Narrative - Reported Type Medical History allergies Surgical History tonsillectomy and adenoidectomy Surgical History pet placement Hospitalization History see above [facility] Other Summary Purpose Family History No Family History Records Found Advance Directives No Advanced Directives Records Found Additional Source Comments REASON FOR VISIT (unrecogniz ed section and content) PUNCTURE WOUND LEFT INDEX FI NGER LAST NIGHT, NEEDS TETANUS UPDATED INFORMATION SOURCE (unrecogn ized section and content) DATE CREATED AUTHOR 09/08/2022 [facility] FOR RECORDS PERTAINING TO PATIENTS WHO ARE [...] BE BASED ON THE PRIMARY CLINICAL RECORDS. [employer] [facility]. provides no warranty or guarantee of the accuracy or completeness of information in this document.
[2024-12-08 12:01] LABS: Hematocrit 39.8 % (36.0-48.0); Hemoglobin 13.5 g/dL (12.0-16.0); Immature Granulocytes Abs Auto 0.02 10^3/uL (0.00-0.03); Immature Granulocytes Pct Auto 0.2 % (0.0-0.5); Lymphocytes Absolute Auto 2.2 10^3/uL (1.2-3.8); Mean Corpuscular HGB Conc 33.9 g/dL (29.9-35.2); Mean Corpuscular Hemoglobin 27.9 pg (26.7-34.0); Mean Corpuscular Volume 82.2 fL (81.0-99.0); Platelet Count 319 10^3/uL (150-450); Red Blood Count 4.84 10^6/uL (4.20-5.40); White Blood Count 8.5 10^3/uL (4.0-11.0)
[2024-12-08 12:10] LABS: Glucose Urine UA NEGATIVE (NEGATIVE)
[2024-12-08 12:20] LABS: Cast Seen? NONE SEEN #/LPF (NONE SEEN); Crystals Seen? None Seen #/HPF (None Seen)
[2024-12-08 12:21] LABS: Urine Culture Indicated ALREADY ORDERED
[2024-12-08 12:38] LABS: Alanine Aminotransferase 25 U/L (14-59); Albumin Globulin Ratio 1.1; Albumin Level 4.0 g/dL (3.4-5.0); Alkaline Phosphatase 104 U/L (46-116); Anion Gap 13.7; Aspartate Amino Transferase 19 U/L (15-37); Blood Urea Nitrogen 16.0 mg/dL (7.0-18.0); Calcium 9.1 mg/dL (8.5-10.1); Carbon Dioxide 25.6 mmol/L (21.0-32.0); Chloride 104 mmol/L (98-107); Cholesterol 156 mg/dL (<=200); Estimated GFR (African America >60 (>=60 mL/min/1.73m^2); Estimated GFR (Non-African Ame >60 (>=60 mL/min/1.73m^2); Free T3 3.43 pg/mL (2.18-3.98); Globulin 3.8 g/dL; Glucose 87 mg/dL (74-106); HDL Cholesterol 39 mg/dL (40-60); Potassium 3.3 mmol/L (3.5-5.1); Sodium 140 mmol/L (136-145); Thyroid Stimulating Hormone 1.605 uIU/mL (0.358-3.740); Total Protein 7.8 g/dL (6.4-8.2); Triglycerides 135 mg/dL (<=150); VLDL CHOLESTEROL 27.0 mg/dL
[2024-12-08 13:18] LABS: Iron 54.0 ug/dL (50.0-170.0)
== END 2024-12-08 11:11 | disposition home or self-care (01) ==
PROVIDERS: PCP Family Medicine; Visit Provider Family Medicine
DX: R10.9 Unspecified abdominal pain (principal); E78.5 Hyperlipidemia, unspecified; R73.09 Other abnormal glucose; D64.9 Anemia, unspecified; E03.9 Hypothyroidism, unspecified; I10 Essential (primary) hypertension; R53.83 Other fatigue
CPT/HCPCS: 36415; 80053; 80061; 81001; 83036; 83525; 83540; 84436; 84443; 84481; 85025; 87086